=== PATIENT | female | born 1975 | race Caucasian/White ===

== ENCOUNTER 2016-07-01 19:39 | Inpatient (IN) | payer MEDICAID ==
[~2016-07-01] VITALS: Ht 162.6 cm; Wt 132.8 kg
--- NOTE | ~2016-07-01 | PUL ---
PATIENT'S NAME: PHILL NGUYEN [facility] AGE: 40 Y [address] ROOM: [address] [place], [place] [address] [facility] ADMIT DATE: 07/01/2016 Pulmonary DISCHARGE DATE: FAMILY PHYSICIAN: XAVIER MALIK MD ATTENDING PHYSICIAN: JAE TURNER V NAME OF PROCEDURE: Bedside Spirometry DATE OF PROCEDURE: July 04, 2016 TECH: KRYSTLE Shay REASON FOR EXAM: Shortness of breath RESULTS: FVC was 1.99 liters which is 54% of predicted and low, FEV1 was 1.74 liters which is 58% of predicted and low, and FEV1/FVC was 87.4% and normal. The flow volume curve did not reveal any significant airflow limitation. However, it was suggestive of restrictive lung disease. After bronchodilator administration FVC increased to 2.12 liters which is a 6% increase, and FEV1 increased to 1.87 liters which is an 8% increase. FEV1/FVC was 88.5%. Please note that there were no acceptable maneuvers. PHYSICIAN INTERPRETATION: The patient has no airflow limitation and no significant bronchodilator response. There is suggestion of restrictive lung disease but lung volumes are needed to confirm that. However overall the results have to be interpreted with care as the patient was not able to perform acceptable maneuvers. MD PEDRO LUIS MCBRIDE/gunnar /[id number] dtt: 07/08/16 1202 , NEHA BILLY dtd: 07/06/16 1538
--- NOTE | ~2016-07-01 | ER ---
PATIENT'S NAME: PHILL NGUYEN [facility] AGE: 40 Y [address] ROOM: [address] [address] LOCATION: [facility]PCU ADMIT DATE: 07/01/2016 ER/Outpatient Report DISCHARGE DATE: FAMILY PHYSICIAN: XAVIER MALIK MD ATTENDING PHYSICIAN: JAE TURNER V Time of Arrival: 1940 hours. Time of Exam: 1940 hours. CHIEF COMPLAINT: Difficulty breathing. HISTORY OF PRESENT ILLNESS: The patient states that she has not felt well for the past 24 hours. She has had generalized body aches, dizziness, and shortness of breath started today. She had fever and chills yesterday and today. States she did have her central line dressing change done yesterday at [facility]. She did take some Advil before coming into the ER. ALLERGIES: On the chart and reviewed by me. CURRENT MEDICATIONS: On the chart and reviewed by me. PAST MEDICAL HISTORY: Includes hypercoagulable state. She has had a PE, DVT, portal vein thrombosis. She has insulin-dependent diabetes, obesity, short-gut syndrome. PAST SURGERIES: Include cholecystectomy, splenectomy, , small-bowel resection, tubal ligation. SOCIAL HISTORY: She lives at home with her and child. Denies use of tobacco, drugs, or alcohol. REVIEW OF SYSTEMS: All negative other than those mentioned in the HPI. PHYSICAL EXAMINATION: VITAL SIGNS: She weighed 134.6 kg. Blood pressure is 128/59, pulse of 106, respirations 20, temperature of 99.2, and O2 saturation was 99% on 3 L per nasal cannula which is what she is on at home. GENERAL: She is awake, alert, and oriented x4. Her [place] Coma Scale is 15. PATIENT'S NAME: NANCY NGUYENLY Nadir [facility] AGE: 40 Y [address] ROOM: [address] [address] LOCATION: GPCU ADMIT DATE: 07/01/2016 ER/Outpatient Report DISCHARGE DATE: FAMILY PHYSICIAN: XAVIER MALIK MD ATTENDING PHYSICIAN: JAE TURNER V HEENT: Her TMs are dull. Nasal is boggy. Oropharynx is clear. NECK: Supple. No lymphadenopathy. LUNGS: Sounds are clear throughout. HEART: Regular rate and rhythm. ABDOMEN: Soft and nondistended. Bowel sounds are present. She does have a left chest port. EMERGENCY ROOM COURSE: Lab was drawn. White count is 16.2, hemoglobin is 11.7. Her ANC is 15.1. Chem panel: Sodium is 139, potassium is 3.4, chloride of 106. BUN is 21, creatinine of 1. GFR is greater than 60. Lactate was 2.2. Procalcitonin is 3.44. Nasal swab for influenza A and B is negative. A catheterized UA was obtained. It is positive for leukocytes, nitrites, and ketones. The micro on the urine shows moderate bacteria. Chest x-ray was completed, reviewed with Dr. Sanchez. No acute process noted. The patient was given Zofran 4 mg IV for the nausea, meclizine 25 mg p.o. for dizziness. She was having discomfort. She was given fentanyl 50 mcg IV. Normal saline was started, and vancomycin and Zosyn were ordered from the pharmacy. Dr. Leo was here in the ER. I did discuss the patient with him as the patient's primary doctor is Dr. Malik. The patient's previous admissions all been through the hospitalist. Dr. Leo asked that the hospitalist be contacted. Dr. Turner was contacted. He came down and evaluated the patient. IMPRESSION: Sepsis. PLAN: The patient will be admitted to PCU and followed by the hospitalist. She is aware of the plan of care. AURELIA HO APRN FOR DO NICOL CHOE/carlos manuel /[id number] d: 07/02/16 0539 t: 07/15/16 1332, OUTPATIENT REPORT
--- NOTE | ~2016-07-01 | CON ---
PATIENT'S NAME: PHILL NGUYEN [facility] AGE: 40 Y [address] ROOM: [place] [address] LOCATION: GPCU ADMIT DATE: 07/01/2016 Consultation DISCHARGE DATE: FAMILY PHYSICIAN: XAVIER MALIK MD ATTENDING PHYSICIAN: JAE TURNER V DATE OF CONSULTATION: 07/08/2016 REFERRING PHYSICIAN: ALISSA NGUYEN MD REFERRING PHYSICIAN: Jae Turner M.D. REASON FOR CONSULTATION: Achromobacter bacteremia. 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 The patient currently had a port. The patient presented to the emergency room on 01 of July with a generalized fatigue, muscle ache, pain, fever, and chills. She came to the hospital. Blood culture was done on 01 of July and started on broad-spectrum antibiotics. Initially noted to have leukocytosis, but no fever. The patient had CT of the chest and abdomen, does not show any significant source for infection. Later blood culture positive Achromobacter both set which was drawn peripherally. Antibiotic narrowed to IV Zosyn and there is a concern about port CLABSI, therefore surgeon was consulted and they actually recommend ID consult regarding the necessity of port removal or not. The patient's white blood cell improved and no fever, doing better, and currently using the port and IV antibiotic infused through the port. Repeat blood culture on 05 of July from the periphery still no growth. An ID consultation requested for question about port removal. The patient denied any fever or chills. No cough or cough of mucus. No chest pain. No abdominal pain. No diarrhea. ALLERGIES: DICYCLOMINE CAUSING RASH. PAST MEDICAL HISTORY: Severe hypocoagulable disorder with DVT and PE, history of Charcot syndrome with TPN dependence, diabetes, obesity, hypertension, and recurrent blood infection related to the line. SOCIAL HISTORY: Negative for smoking. PATIENT'S NAME: PHILL NGUYEN [facility] AGE: 40 Y [address] ROOM: [place] [address] LOCATION: GPCU ADMIT DATE: 07/01/2016 Consultation DISCHARGE DATE: FAMILY PHYSICIAN: XAVIER MALIK MD ATTENDING PHYSICIAN: JAE TURNER V FAMILY HISTORY: Positive for diabetes. CURRENT MEDICATIONS: Has been on IV Zosyn since admission. REVIEW OF SYSTEMS: GENERAL: Fever negative. Chills negative. HEENT: Headache negative. PULMONARY: Cough negative. Sputum negative. CARDIOVASCULAR: Chest pain negative. GI: Nausea and vomiting negative. Diarrhea negative. MUSCULOSKELETAL: Joint pain negative. PHYSICAL EXAMINATION: VITAL SIGNS: Blood pressure 100/58, pulse rate 63, respirations 14, and temperature 98.3. No fever since admission. GENERAL: In NAD. HEENT: Conjunctivae pink. Sclerae not icteric. No stomatitis. NECK: Supple. LUNGS: Sound clear to auscultation bilaterally. HEART: Regular rhythm and rate. ABDOMEN: Bowel sounds positive. No tenderness or rebound tenderness. BACK AND EXTREMITIES: No joint swelling noted. SKIN: Left upper chest had a port. No redness. Port access. LABORATORY DATA: White blood cell count 13.0, hemoglobin 10.2, and platelets 412. Chemistry: BUN 12 and creatinine 0.9. UA done on 04 of July shows negative pyuria. Blood culture on 01 of July, 2 sets both from the periphery, grew Achromobacter xylosoxidans; sensitive to Bactrim, ceftazidime, Zosyn, and meropenem. On 04 of July, urine cultures shows Deanna. On 05 of July, one set of blood culture from the periphery, no growth. ASSESSMENT AND PLAN: Achromobacter bacteremia and suspects CLABSI, all the blood culture was drawn peripherally. CT of the chest and CT of the abdomen are unremarkable. Blood culture cleared on 05 of July, but this one also drove from the periphery. RECOMMENDATIONS: We will check one set of blood culture from the port today. If that blood culture become positive, then ID recommend to remove the port. If the blood culture from the port is negative in 48 hours, then I will recommend to try to salvage the port. In this case, we will recommend to continue IV Zosyn through PATIENT'S NAME: PHILL NGUYEN [facility] AGE: 40 Y [address] ROOM: [id number] [place], [place] [address] [facility] ADMIT DATE: 07/01/2016 Consultation DISCHARGE DATE: FAMILY PHYSICIAN: XAVIER MALIK MD ATTENDING PHYSICIAN: JAE TURNER V July 18, 2016, which is 14 days from the previous negative blood culture, which was done on 05 of July. Then, stop IV Zosyn and wait for one week and recommend to check blood culture x2, one from the port and one from the periphery around July 26, 2016. Can use IV meropenem 2 grams q.12 hours or IV cefepime 2 grams q.12 hours instead of IV Zosyn for outpatient IV antibiotic if less frequent antibiotic desired. The patient will need to follow up to ID Clinic around July 26, 2016. If any question, please call ID Service . MD BRUCE SEYMOUR/carlos manuel /[id number] d: 07/08/162030 t: 07/24/161811, CONSULTATION REPORT
--- NOTE | ~2016-07-01 | CON ---
PATIENT'S NAME: PHILL NGUYEN [facility] AGE: 40 Y [address] ROOM: [address] [place], [place] [address] LOCATION: GPCU ADMIT DATE: 07/01/2016 Consultation DISCHARGE DATE: FAMILY PHYSICIAN: XAVIER MALIK MD ATTENDING PHYSICIAN: JAE TURNER V REFERRING PHYSICIAN: ALISSA NGUYEN MD REASON FOR CONSULTATION: Port removal. HISTORY OF PRESENT ILLNESS: Phill Argueta is a 40-year-old female who has a complicated past medical history. 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 The patient was admitted to [facility] on July 01 with fever, generalized fatigue, and chest pain. The patient's lab work on admission showed a white blood cell count of 7.9, which increased up to 27.5 on July 02 and has actually come down to 11.4 today. The patient had blood cultures drawn peripherally, which showed gram-negative rods and grew Achromobacter xylosoxidans. The patient had repeat blood culture drawn yesterday, which shows no growth so far. Dr. Orlando evaluated the patient yesterday for the hospitalist and consulted General Surgery today for consideration of removal of the port with a new port placement. The patient states that she is feeling better today. She states that when she was admitted she did have some abdominal pain, but that has improved. The patient states that she is completely dependent on the TPN, as the only thing that she tries to eat at home is some water and popsicles. Anything more than that will cause significant abdominal pain. The patient was maintained on Lovenox for her hypercoagulable state. PAST MEDICAL HISTORY: ALLERGIES: DEXTROMETHORPHAN AND BENTYL. MEDICATIONS: Include, 1. Lipitor 10 mg p.o. q.h.s. 2. Wellbutrin XL 150 mg p.o. daily. 3. Lovenox 180 mg subcu b.i.d. 4. Prozac 40 mg p.o. daily. 5. Lasix 40 mg p.o. daily. 6. Glucophage 500 mg p.o. b.i.d. 7. Zofran 4 mg p.o. every 4 hours. 8. Protonix 40 mg p.o. daily. 9. TPN. PATIENT'S NAME: PHILL NGUYEN [facility] AGE: 40 Y [address] ROOM: [address] [place], [place] [address] LOCATION: GPCU ADMIT DATE: 07/01/2016 Consultation DISCHARGE DATE: FAMILY PHYSICIAN: XAVIER MALIK MD ATTENDING PHYSICIAN: JAE TURNER V 10. Aldactone 50 mg p.o. daily. 11. Drisdol 29554 units p.o. every 7 days. ILLNESSES: Include severe hypercoagulable disorder with history of DVTs and PEs; history of short gut syndrome, on TPN; noninsulin-dependent diabetes; chronic hypoxic respiratory failure; morbid obesity; hypertension; and history of acute kidney injury. PHYSICAL EXAMINATION: VITAL SIGNS: Temperature is 98.4. The patient has been afebrile throughout the hospitalization. Blood pressure is 107/56, pulse 71, and respirations 18. GENERAL: Obese, 40-year-old female who is alert, oriented, pleasant, cooperative. HEENT: Eyes, ears, nose, and throat are grossly normal. LUNGS: Diminished bilaterally. No wheezes, rhonchi, or rales noted. HEART: Regular rate and rhythm. ABDOMEN: Has active bowel sounds. Abdomen is soft with mild diffuse tenderness. She has a port accessed in the left upper chest area. There is no erythema or significant tenderness around this area. No drainage. LAB WORK: Again, white blood cell count 11.4, hemoglobin 9.9, and platelets 381. CMP shows sodium 139, potassium 3.7, glucose 150, BUN 10, and creatinine 0.9. Total bilirubin 0.4, alkaline phosphatase 217, AST 21, and ALT 49. Urine culture shows yeast. The repeat blood culture shows no growth. ASSESSMENT: A 40-year-old female with, 1. Bacteremia with Achromobacter xylosoxidans with repeat blood culture is negative. 2. Hypercoagulable disorder, on Lovenox. 3. Short gut syndrome. TPN dependent. PLAN: Dr. Ocampo discussed this patient further with Dr. Piña who is taking over care of the patient today. It was decided that it would be best to wait and obtain an ID consult when their 1st available, which is on July 08. We will await to see what Infectious Disease states in regard to the port and whether it needs to be removed. If it is removed, then we would not be able to replace it for a few days to allow the infection to clear completely. Also Dr. Ocampo would recommend a [place] overall port for the TPN. Dr. Ocampo discussed this further with the patient. The patient was comfortable waiting until Infectious Disease makes the recommendation that she is not overly anxious that has to undergo removal and replacement. The patient's questions PATIENT'S NAME: PHILL NGUYEN [facility] AGE: 40 Y [address] ROOM: [place] [address] [facility] ADMIT DATE: 07/01/2016 Consultation DISCHARGE DATE: FAMILY PHYSICIAN: XAVIER MALIK MD ATTENDING PHYSICIAN: JAE TURNER V concerns were addressed. Dr. Ocampo evaluated the patient, was involved in the assessment and plan, and was available for supervision. JANY PITTMAN PA-C FOR MD JONNY WEBBERK/carlos manuel /[id number] d: 07/06/16 2100 t: 07/15/16 1742, CONSULTATION REPORT
--- NOTE | ~2016-07-01 | HP ---
PATIENT'S NAME: PHILL NGUYEN [facility] AGE: 40 Y [address] ROOM: [place] [address] LOCATION: GPCU ADMIT DATE: 07/01/2016 History & Physical DISCHARGE DATE: FAMILY PHYSICIAN: XAVIER MALIK MD ATTENDING PHYSICIAN: JAE TURNER V DATE OF SERVICE: CHIEF COMPLAINT: Fever, generalized fatigue, and chest pain. 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 The patient presented to the ER with approximately 2 days of complaints of generalized fatigue, muscle and ache pains, fevers and chills, nausea, vomiting, and chest pain, which is comparable to the episode, where she was diagnosed with PEs. The patient is chronically on anticoagulation with Lovenox 180 b.i.d. and has been known to develop PEs when the dose has dropped below that. She also endorses abdominal distention and tenderness. In the ER, workup revealed an elevated white count and slightly elevated lactate. She was borderline febrile at 99.3. REVIEW OF SYSTEMS: All systems have been reviewed and are negative except pertinent positives as mentioned above. PAST MEDICAL HISTORY: Significant for: 1. Severe hypercoagulable disorder with history of DVTs and PEs, currently on Lovenox. 2. History of short-gut syndrome with TPN dependence. 3. Jjt-zosqaqs-ikloeezip diabetes. 4. Chronic hypoxic respiratory failure requiring oxygen supplementation. 5. Morbid obesity. 6. Hypertension. 7. Recurrent infections related to a history of a tunnel catheter, which at this point, has been removed. PATIENT'S NAME: PHILL NGUYEN [facility] AGE: 40 Y [address] ROOM: [place] [address] LOCATION: GPCU ADMIT DATE: 07/01/2016 History & Physical DISCHARGE DATE: FAMILY PHYSICIAN: XAVIER MALIK MD ATTENDING PHYSICIAN: JAE TURNER V 8. History of acute kidney injury. SOCIAL HISTORY: Negative for any ongoing toxic habits. FAMILY HISTORY: Reviewed in entirety and is noncontributory due to known underlying etiology for her presentation. CURRENT MEDICATIONS: Include Lovenox and metformin and a full list is currently being compiled. PHYSICAL EXAMINATION: VITAL SIGNS: Blood pressure 100/50, heart rate is in the low 100s and regular, temperature 99.7, respirations 16, and satting 96% to 98% on 2 L nasal cannula. GENERAL: Appears as a morbidly obese, middle-aged female, in no severe distress, slightly diaphoretic skin. EYES: Exam shows pupils are equal and reactive to light. LYMPHATIC: Exam shows no cervical lymphadenopathy. ENDOCRINE: Exam shows no thyromegaly. LUNGS: Clear to auscultation in all harman. HEART: Rate is slightly tachycardic and regular with no appreciable murmurs, gallops, or rubs. ABDOMEN: Soft, slightly tender, with diminished bowel sounds in all harman. No rebound or guarding. VASCULAR: Exam reveals 2+ pedal pulses. MUSCULOSKELETAL: Exam is unremarkable. SKIN: Warm and dry. PSYCHIATRIC: Exam reveals labile mood, but preserved cognition and affect. LABORATORY DATA: Studies performed in the ER are significant for chest x-ray, in which I only see cardiomegaly. Lab results are significant for a lactate of 2.2. Sodium 139, potassium 3.4, glucose 166, unremarkable transaminases. White count is 16.2, hemoglobin 11.7, and platelets of 441. Procalcitonin 3.44. Urinalysis shows 100 leukocytes, positive nitrites. ASSESSMENT AND PLAN: This is a 40-year-old female who will be admitted with: 1. Systemic inflammatory response syndrome. This patient is quite predisposed to infections and we will continue vancomycin and Zosyn, which were started in the ER. We will follow up with her blood cultures. We will hydrate her. We will also perform a CT of chest, abdomen, and pelvis to rule out possible focus. PATIENT'S NAME: PHILL NGUYEN [facility] AGE: 40 Y [address] ROOM: [address] [place], [place] [address] LOCATION: GPCU ADMIT DATE: 07/01/2016 History & Physical DISCHARGE DATE: FAMILY PHYSICIAN: XAVIER MALIK MD ATTENDING PHYSICIAN: JAE TURNER V 2. Chronic hypoxic respiratory failure. We will continue the patient on oxygen supplementation. 3. Hypercoagulable disorder. The patient is heavily endorsing potential for repeat pulmonary emboli, as I know she has had a prior failure of lower Lovenox dose in the past. We will do a CT chest with contrast to rule out any acute pulmonary embolisms. 4. Abdominal symptoms. We will do a CAT scan of abdomen and pelvis with p.o. and intravenous contrast to rule out possibility of additional ischemic focus in her small intestine versus possible focus of infection. We will also add amylase and lipase to her labs drawn in the ER. 5. Iky-ppvzmia-mgllebhli diabetes. We will have to treat with her insulin as we will have to hold metformin after giving her contrast. 6. Chronic protein-calorie malnutrition, rnqhymav-ip-cubwfe, we will continue the patient on TPN once we make sure she does not have a blood- borne infection. 7. Additional management will depend on clinical course. Time dedicated to this patient's encounter is 35 minutes. MD MAXX MCFADDEN/carlos manuel /[id number] D: [id number] T: [id number] HISTORY & PHYSICAL
--- NOTE | ~2016-07-01 | CON ---
PATIENT'S NAME: PHILL NGUYEN [facility] AGE: 40 Y [address] ROOM: [address]6327 [place], [place] [address] LOCATION: GPCU ADMIT DATE: 07/01/2016 Consultation DISCHARGE DATE: FAMILY PHYSICIAN: XAVIER MALIK MD ATTENDING PHYSICIAN: JAE TURNER V DATE OF CONSULTATION: 07/02/2016 REFERRING PHYSICIAN: ALISSA NGUYEN MD REASON FOR CONSULTATION: Short-bowel syndrome. HISTORY OF PRESENT ILLNESS: This is a pleasant, 40-year-old female who is familiar to our service from previous hospital admissions. 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 The patient has been thoroughly worked up with no identification of the hypercoagulable disorder. The patient, for the past year, has been dependent on total parenteral nutrition. Also with frequent, recurring blood-borne infections. The patient presented to the emergency room with a 2-day complaint of generalized fatigue, muscle and ache pain, fever, and chills. The patient also at that time complained of some abdominal discomfort, nausea, and vomiting. The patient is chronically on anticoagulation, being Lovenox twice daily, as she has a history of multiple DVTs and PEs. She has a port placed to the left chest and again has been receiving TPN for the past year. She does state at home she is able to tolerate popsicles and water, though any type of food she ingests does increase her abdominal pain. In the emergency room, her white blood cell count was elevated with a slightly elevated lactate. She also, at that time, had a temperature of 99.3. The patient denies any current chest pain, chest pressure, shortness of breath, fever, chills, or night sweats. She does state that her weight has been stable with no unintentional weight loss. PAST MEDICAL HISTORY: Severe hypercoagulable disorder with history of DVTs and PEs, currently on long-term Lovenox; short-gut syndrome, with TPN dependence; non-insulin- dependent diabetes; chronic hypoxic respiratory failure requiring oxygen supplementation; morbid obesity; hypertension; recurring infections; and history of acute kidney injury. PAST SURGICAL HISTORY: x4, tubal ligation, laparoscopic cholecystectomy, splenectomy, tonsillectomy, cystoscopy, history of upper endoscopy, and colonoscopy. SOCIAL HISTORY: PATIENT'S NAME: PHILL NGUYEN [facility] AGE: 40 Y [address] ROOM: [address] [place], [place] [address] LOCATION: GPCU ADMIT DATE: 07/01/2016 Consultation DISCHARGE DATE: FAMILY PHYSICIAN: XAVIER MALIK MD ATTENDING PHYSICIAN: JAE TURNER V The patient denies any alcohol, tobacco, or illicit drug use. FAMILY HISTORY: The patient's mother has diabetes mellitus, CHF, and hyperlipidemia. The patient's father had multiple strokes and has since , he also had diabetes. She does have siblings, though she denies they have any medical issues. ALLERGIES: DEXTROMETHORPHAN, DICYCLOMINE. CURRENT MEDICATIONS: Please refer to the medication administration record. REVIEW OF SYSTEMS: A 10-point review of systems was completed, all were negative except for those identified in the History of Present Illness. PHYSICAL EXAMINATION: GENERAL: A very pleasant, 40-year-old female, who is lying in bed, who appears to be in no acute distress. VITAL SIGNS: Temperature 98.0, pulse of 75, respirations of 16, blood pressure 108/66, and oxygen saturation is 99% on room air. SKIN: [place], warm, and dry. No jaundice. HEENT: Head is normocephalic and atraumatic. Pupils are equal, round, and reactive to light. Sclerae are clear, nonicteric. Oral mucosa is pink and moist. No thyromegaly. NECK: Soft and supple. CARDIOVASCULAR: Regular. Normal S1 and S2. RESPIRATORY: Respirations even and unlabored. Lungs clear to auscultation. ABDOMEN: Soft, round, and obese. Tender throughout. No rebound, rigidity, or guarding noted. Bowel sounds positive x4 quadrants. MUSCULOSKELETAL: No muscle weakness or atrophy. EXTREMITIES: No clubbing, cyanosis, or edema. NEUROLOGICAL: Grossly nonfocal. LABORATORY AND DIAGNOSTIC DATA: On admission to the emergency room, she was found to have a white blood cell count of 27.5, hemoglobin of 7.6, hematocrit of 33.1, and platelets of 380. Chemistry panel included glucose of 142, BUN of 17, creatinine 0.8, sodium 138, potassium of 4.8, chloride of 109, and CO2 of 22. Chemistry panel includes albumin of 2.6, AST of 122, ALT of 77, alkaline phosphatase of 131, total bilirubin is 0.7, phosphorus of 3.2, and magnesium of 2.0. Prothrombin time 10.1, INR is 1.0, and PTT of 22. Amylase was 41 and lipase of 241. She also underwent a CT scan on evaluation that showed no acute findings. Chronic PATIENT'S NAME: PHILL NGUYEN [facility] AGE: 40 Y [address] ROOM: [id number] [place] [id number] LOCATION: GPCU ADMIT DATE: 07/01/2016 Consultation DISCHARGE DATE: FAMILY PHYSICIAN: XAVIER MALIK MD ATTENDING PHYSICIAN: JAE TURNER V splenectomy, hepatomegaly, a cavernous transformation of the portal vein and formation of varices around the distal esophagus and in the upper abdomen, hepatomegaly with septal nodular liver surface contour suggests chronic parenchymal liver disease. Ascites had resolved compared to previous study completed in February 2016. ASSESSMENT AND PLAN: Again, this is a very pleasant, 40-year-old female who has significant past medical history for hypercoagulable state of unknown etiology resulting in short-bowel syndrome, The patient has been on chronic total parenteral nutrition for the past year. At this time, we were asked to see in consultation for the short-bowel syndrome, though we agree with recommendations of continuing the patient's total parenteral nutrition. Unfortunately, at this point, in the patient's health status, continual total parenteral nutrition will be warranted. This was discussed in depth with the patient's primary provider as they are in agreement. Thank you for this consult and allowing us to participate in the care of this patient. We will continue to monitor, evaluate, and treat as appropriate. JEMIMA WALDRON APRN FOR MD DANIELITO IVAN/carlos manuel /[id number] d: 07/03/16 1122 t: 07/03/16 1203, CONSULTATION REPORT
--- NOTE | ~2016-07-01 | ECHO ---
Transthoracic Echocardiography Report (TTE) Demographics Patient Name PHILL NGUYEN Date of Study 07/06/2016 Patient Number [id number] Visit Number [id number] Date of 1975 Room Number G6327 Gender Female Number Age 40 year(s) Referring Cristi Morris MD Engineer Automated Equipment Elizabeth Murphy RVT Physician Steffany Spears MD Physician Interpreting Columba Staples Gasser Machine Operator Physician Supervising Ordering Ayana Morris MD, MD/MLP Physician Nurse Stress Principal Trainer Conclusions Contractility Score Summary Normal Left Ventricular contractility was noted. Summary Technically difficult exam. The estimated left ventricular ejection fraction is 55%.The left ventricle is normal in size with normal wall thickness.WMAs are difficult to comment on. Trivial MR. Mild tricuspid regurgitation with normal pulmonary pressures. Procedure Type of Study TTE procedure:2D Echocardiogram, M-Mode, Doppler , Color Doppler. Procedure Date Date: 07/06/2016 Start: 02:48 PM Study Location: Inpatient Portable Technical Quality: Fair due to body habitus. Indications:Fever of unknown origin and Shortness of breath. Appropriate Use Criteria: 9 Patient Status: Routine HR: 64 bpm BP: 106/55 mmHg M-Mode/2D Measurements LV Diastolic Dimension: 5.14 cm LV Systolic Dimension: 3.47 cm LV Septum Diastolic: 0.94 cm LV PW Diastolic: 0.87 cm AO Root Dimension: 2.6 cm Cardiac Output: 3.52 l/min LA Dimension: 4.1 cm EF Estimated: 55 % LVOT: 2 cm LVOT VTI: 17.5 cm RV Base: 3.55 cm LV Stroke volume: 54.95 ml RV Length: 6.34 cm TAPSE: 2.97 cm TDI-S': 17.5 cm/s Doppler Measurements AV Peak Velocity: 1.11 m/s MV Peak E-Wave: 0.93 m/s AV Peak Gradient: 4.93 mmHg MV Peak A-Wave: 0.63 m/s AV Mean Gradient: 3 mmHg MV E/A Ratio: 1.47 LVOT Peak Velocity: 0.76 m/s MV P1/2t: 48 msec MV Deceleration Time: 155 msec TR Gradient:26.01 mmHg PV Peak Velocity: 1.14 m/s Estimated RAP:3 mmHg PV Peak Gradient: 5.2 mmHg Estimated RVSP: 29 mmHg Estimated PASP: 29.01 mmHg E' Septal Velocity: 0.09 m/s A' Septal Velocity: 0.11 m/s E' Lateral Velocity: 0.1 m/s A' Lateral Velocity: 0.11 m/s Findings Left Ventricle The left ventricle is normal in size with normal wall thickness and EF.WMAs cannot be confidently commented on. Right Ventricle Normal right ventricle structure and function. Left Atrium Normal left atrial size. Right Atrium Normal right atrial size. Prominent Chiari network seen in the right atrium. Increased RA pressures. Mitral Valve Normal mitral valve structure and function. Trivial mitral regurgitation by color Doppler. Aortic Valve Normal aortic valve structure and function. Tricuspid Valve Normal tricuspid valve structure and function. Mild tricuspid regurgitation by color Doppler. Pulmonic Valve The pulmonic valve is not well visualized. Pericardial Effusion No evidence of pericardial effusion. Miscellaneous Visualized portions of the aortic root appear normal in size. Pleural Effusion No evidence of pleural effusion. Contractility Score LV regional wall motion:(0-Non visualized 1-Normal 2-Hypokinesis 3-Akinesis 4-Dyskinesis 5-Aneurysm) Signature dtt: Bel Waterman dtd: 07/06/16 1448 Physician Self Edit
--- NOTE | ~2016-07-01 | DS ---
PATIENT'S NAME: PHILL NGUYEN [facility] AGE: 40 Y [address] ROOM: [address] [place], [place] [address] LOCATION: GPCU ADMIT DATE: 07/01/2016 Discharge Summary DISCHARGE DATE: 07/10/2016 FAMILY PHYSICIAN: Nhan Colin MD ATTENDING PHYSICIAN: Jamey Jeter V FINAL DIAGNOSES: 1. 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 2. Acute on chronic hypoxic respiratory failure. 3. Hypercoagulable state. 4. Chronic ischemic colitis/short-bowel syndrome. 5. Chronic TPN usage. 6. Chronic pain syndrome. 7. Anemia of chronic disease. Please see the history and physical dictated by Dr. Jeter for details of admission. LABORATORY DATA: On admission, lactate was 2.2. Sodium on admission was 139, discharge 137; potassium on admission was 3.4, most prior to discharge is 4.1; CO2 on admission was 22, discharge 27; BUN on admission was 17, discharge 13; creatinine on admission was 0.9, discharge 0.9. Liver enzymes were normal. Magnesium on admission was 2, discharge 2. White blood cell count on admission was 16.2, quickly mj to 27.5 with 17% bands, most prior to discharge it was 12.1; hemoglobin on admission was 10.9, at discharge 10.9; platelet count on admission was 45, discharge 427. Procalcitonin on admission was 3.44. Influenza A and influenza B studies were negative. MICROBIOLOGY DATA: Blood cultures were positive for Achromobacter xylosoxidans. CARDIOVASCULAR STUDIES: An echocardiogram done on admission did not show any evidence of endocarditis. HOSPITAL COURSE: The patient presented with fevers, chills, and a sepsis picture. She was found to have an elevated white blood cell count. In the emergency room, she did undergo washing for influenza which was negative. It was felt that she needed hospitalization. There was a concern that she may have an infected port. She was placed on IV Zosyn and vancomycin. A CT scan of the chest, abdomen, and pelvis was done to rule out any other source of infection. She was continued on the Lovenox for her hypercoagulable state and was continued on TPN. Her blood cultures did return positive for gram- negative amos. GI was asked to see her with her short bowel syndrome from chronic ischemic colitis. She did continue to complain of pain and did PATIENT'S NAME: PHILL NGUYEN [facility] AGE: 40 Y [address] ROOM: [address] [place], [place] [address] LOCATION: GPCU ADMIT DATE: 07/01/2016 Discharge Summary DISCHARGE DATE: 07/10/2016 FAMILY PHYSICIAN: Nhan Colin MD ATTENDING PHYSICIAN: Jamey Jeter V receive IV morphine for the pain. Her fluid status was monitored closely. ID was asked to see her when they arrived. Her blood culture did grow Achromobacter xylosoxidans. There was a concern that this was a port infection, Dr. Ocampo did see her and wanted ID to comment as to whether we needed to pull the port. An echocardiogram was done to rule out endocarditis. ID did see her and felt that because blood cultures that had been drawn on July 05 were negative, that we would be able to salvage her port. The plan was to keep her on IV antibiotics through July 18. We did change her to meropenem 2 g IV q.12 hours to accommodate this. Then on July 25, she would have repeat cultures, one from the port and one peripherally. Once the repeat cultures drawn on the were negative for 48 hours, it was felt that she would be stable for discharge with IV antibiotics arrangements were made for her to receive home health IV antibiotics. DISCHARGE INSTRUCTIONS: To have her home TPN. Follow up with Dr. Colin on July 24 because the falls on Wednesday. She needs blood culture from her port, one peripherally. I spoke to Dr. Colin personally. MEDICATIONS: 1. Metformin 500 mg twice daily. 2. Protonix 40 mg daily. 3. Vitamin D 42485 units weekly. 4. Zofran 4 mg every 4 hours. 5. Oxygen at 2 L per nasal cannula. 6. Lipitor 10 mg daily. 7. Lovenox 180 mg subcu twice daily. 8. Prozac 40 mg daily. 9. Lasix 40 mg daily. 10. Spironolactone 50 mg daily. 11. Wellbutrin 150 mg daily. 12. Meropenem 2 g IV q.12 hours through July 18. 13. Percocet 5/325 1-2 every 6 hours as needed for pain. OVERALL PROGNOSIS: At discharge is fair. FAY DENTON MD LAW/modl /[id number] d: 07/11/16 0044 t: 07/22/16 1642, DISCHARGE SUMMARY
[~2016-07-01 19:39] MED LIST: ALDACTONE50 MG PO; DIFLUCAN200 MG PO; DIGESTIVE PROB250 MG PO; DRISDOL 5050000 UNIT PO; GLUCOPHAGE500 MG PO; HUMULIN R100 UNIT/1 SUB-Q; HYDROCODON-ACE1 EAC4 PO; IMODIUM LIQ1 MG/5 ML PO; INTRALIPID; INTRALIPID IV; INVANZ1 G1 IV; LASIX40 M1 PO; LIPITOR10 MG PO; LIPITOR20 M1 PO; LOVENOX 10100 MG/1 M PO; LOVENOX 8080 MG/0.8 PO; LOVENOX SUB-Q; LOVENOX120 MG/0.8 SUB-Q; NORCO 5-325 MG1 TAB PO; NOVOLIN-R100 UNIT/M SUB-Q; NYSTATIN1 EAC1 TOP; OXYGEN INH; OXYGEN M-15 INH; PERCOCET 5-3251 EACH PO; PROTONIX40 MG PO; PROZAC20 MG PO; PROZAC40 MG PO; TPN ELECTROLYT100 ML; VANCO 1.751.75 GM/25 IV; ZOFRAN4 MG PO; ZOVIRAX200 MG PO
[2016-07-01 20:24] LABS: BASOPHIL # 0.1 K/uL (0.0-0.2); BASOPHIL % 0.3 %; EOSINOPHIL # 0.2 K/uL (0.0-0.5); EOSINOPHIL % 1.2 %; HEMATOCRIT 35.3 % (33.0-46.0); HEMOGLOBIN 11.7 g/dL (11.0-15.0); IMMATURE GRANULOCYTE # 0.1 K/uL (0.0-0.3); IMMATURE GRANULOCYTE % 0.4 %; LYMPHOCYTE # 0.5 K/uL (0.8-4.0); LYMPHOCYTE % 3.3 %; MCH 31.7 pg (27.0-34.0); MCHC 33.1 gm/dL (32.0-36.5); MCV 95.7 fl (83.0-98.0); MONOCYTE # 0.2 K/uL (0.0-1.0); MONOCYTE % 1.3 %; MPV 9.4 fl (9.4-12.4); NEUTROPHIL # (ANC) 15.1 K/uL (1.8-7.8); NEUTROPHIL % 93.5 %; NRBC % 0 /100WBC (0-0.00); PLATELET COUNT 441 K/uL (150-450); RBC 3.69 M/uL (3.50-5.50); RDW-CV 15.7 % (11.9-14.6)
[2016-07-01 20:25] LABS: WBC 16.2 K/uL (4.0-11.0)
[2016-07-01 20:30] LABS: PROTIME 10.1 SECONDS (9.6-11.1); PTT 22 SECONDS (25-32)
[2016-07-01 20:40] LABS: ALBUMIN 3.4 gm/dL (3.5-5.0); ALK PHOS 129 IU/L (33-138); ALT 37 IU/L (12-78); ANION GAP 14.4 (10.0-19.0); AST 30 IU/L (10-40); BLOOD UREA NITROGEN 21 mg/dL (6-24); CALCIUM 8.8 mg/dL (8.5-10.5); CHLORIDE 106 mMol/L (96-110); CO2 22 mMol/L (22-32); ESTIMATED GFR (MDRD EQUATION) > 60; POTASSIUM 3.4 mMol/L (3.7-5.1); SODIUM 139 mMol/L (135-145); TOTAL PROTEIN 7.6 g/dL (6.0-8.4)
[2016-07-01 20:41] LABS: TOTAL BILIRUBIN 0.3 mg/dL (0.0-1.5)
[2016-07-01 21:00] LABS: BILIRUBIN URINE NEGATIVE (NEGATIVE); BLOOD URINE 10 /UL (NEGATIVE); GLUCOSE URINE NEGATIVE (NEGATIVE); KETONE URINE 5 mg/dL (NEGATIVE); LEUKOCYTES URINE 100 /UL (NEGATIVE); NITRITE URINE POSITIVE (NEGATIVE); PROTEIN URINE 30 mg/dL (NEGATIVE); SPEC GRAVITY URINE 1.015 (1.003-1.035); UROBILINOGEN URINE 1 mg/dL (NORMAL)
[2016-07-01 21:07] LABS: COLOR URINE YELLOW (YELLOW); TURBIDITY URINE CLEAR (CLEAR)
[2016-07-01 21:08] LABS: RBC URINE RARE #/HPF (NEGATIVE)
[2016-07-01 21:09] LABS: BACTERIA URINE MODERATE (NEGATIVE); MUCUS URINE 1+ (NEGATIVE)
[2016-07-01] MEDS ORDERED: LASIX40 MG PO (23:58)
[2016-07-01] MEDS ORDERED: ALDACTONE50 MG PO (23:58)
[2016-07-01] MEDS ORDERED: WELLBUTRIN XL150 M1 PO (23:58)
[2016-07-02 02:33] LABS: CPK 102 IU/L (21-215)
--- NOTE | 2016-07-02 05:20 | NUR ---
Patient admitted to pcu at 2315 from ED via cart. She was accompanied by her son and . She had been having fever, chills and body aches at home for 2 days prior to admission. tested negative for influenza did ct of chest and abdomen and was negative for pe's. started on several antibiotis. Has a left chest port. Up on the room with 1 assist as she is feeling dizzy. VSS on 3 L NC per her home dose. Will continue to monitor
[2016-07-02 06:10] LABS: HEMATOCRIT 33.1 % (33.0-46.0); HEMOGLOBIN 10.6 g/dL (11.0-15.0); MCH 31.3 pg (27.0-34.0); MCV 97.6 fl (83.0-98.0); MPV 9.2 fl (9.4-12.4); PLATELET COUNT 380 K/uL (150-450); RBC 3.39 M/uL (3.50-5.50); RDW-CV 15.9 % (11.9-14.6)
[2016-07-02 06:13] LABS: WBC 27.5 K/uL (4.0-11.0)
[2016-07-02 06:29] LABS: ALBUMIN 2.6 gm/dL (3.5-5.0); ALK PHOS 131 IU/L (33-138); ALT 77 IU/L (12-78); AST 122 IU/L (10-40); BLOOD UREA NITROGEN 17 mg/dL (6-24); CALCIUM 7.8 mg/dL (8.5-10.5); CHLORIDE 109 mMol/L (96-110); CO2 22 mMol/L (22-32); CPK 46 IU/L (21-215); CREATININE 0.8 mg/dL (0.5-1.1); ESTIMATED GFR (MDRD EQUATION) > 60; PHOSPHORUS 3.2 mg/dL (2.5-4.9); SODIUM 138 mMol/L (135-145); TOTAL PROTEIN 6.5 g/dL (6.0-8.4)
[2016-07-02 06:31] LABS: ANION GAP 11.8 (10.0-19.0); POTASSIUM 4.8 mMol/L (3.7-5.1); TOTAL BILIRUBIN 0.7 mg/dL (0.0-1.5)
[2016-07-02 06:59] LABS: ABSOLUTE NEUTROPHIL CT (ANC) 24.2 K/uL (1.8-7.8); BANDED NEUTROPHIL # 4.7 K/uL (0.0-0.1); BANDED NEUTROPHILS % 17 %; LYMPHOCYTE # 1.9 K/uL (0.8-4.0); LYMPHOCYTE % 7 %; MONOCYTE # 1.4 K/uL (0.0-1.0); SEGMENTED NEUTROPHIL # 19.5 K/uL (1.8-7.8); SEGMENTED NEUTROPHIL % 71 %
--- NOTE | 2016-07-02 14:43 | NUR ---
Significant Event: AOx3. VSS. Afebrile. L) chest port with NS running at 100ml/hr. Has 3 different antibiotics. Up with 1 assist to the bathroom. Patient complains of dizziness when up and walking. On 2L/O2 humidified nasal cannula. Complains of abdomen pain. Morphine 6mg IV given Q4hrs PRN for pain. Usually has TPN running. Has consult in for nutrition. ALso has GI consult. Follow up:
[2016-07-03 03:26] LABS: BASOPHIL # 0.1 K/uL (0.0-0.2); BASOPHIL % 0.4 %; EOSINOPHIL # 0.6 K/uL (0.0-0.5); EOSINOPHIL % 3.1 %; HEMATOCRIT 29.9 % (33.0-46.0); HEMOGLOBIN 9.6 g/dL (11.0-15.0); IMMATURE GRANULOCYTE # 0.1 K/uL (0.0-0.3); IMMATURE GRANULOCYTE % 0.4 %; LYMPHOCYTE # 3.4 K/uL (0.8-4.0); LYMPHOCYTE % 17.7 %; MCH 31.3 pg (27.0-34.0); MCHC 32.1 gm/dL (32.0-36.5); MCV 97.4 fl (83.0-98.0); MONOCYTE # 1.3 K/uL (0.0-1.0); MONOCYTE % 6.9 %; MPV 9.6 fl (9.4-12.4); NEUTROPHIL # (ANC) 13.6 K/uL (1.8-7.8); NEUTROPHIL % 71.5 %; NRBC % 0 /100WBC (0-0.00); PLATELET COUNT 378 K/uL (150-450); RBC 3.07 M/uL (3.50-5.50); RDW-CV 16.3 % (11.9-14.6)
[2016-07-03 03:44] LABS: WBC 19.1 K/uL (4.0-11.0)
--- NOTE | 2016-07-03 05:28 | NUR ---
Significant Event: PATIENT A/0 X 3, COOPERATIVE WITH CARES. AMBULATES STAND BY ASSIST. ALL VSS, AFEBRILE, REMAINS ON 2L 02 PER HOME DOSE. BLOOD CULTURES CAME BACK + FOR GRAM - RODS. VANCO AND FLAGYL D/C'D, CONTINUES ZOSYN, ALSO NS AT 100 ML/HR TO LEFT CHEST PORT. BEGAN ITCHING, BENADRYL 25 MG PO GIVEN. SHE CONTINUES TO REQUEST 6 MG MORPHINE ALONG WITH 4 MG ZOFRAN Q4 HOURS. FOR BACK/NECK/ABDOMINAL PAIN. RELIEF HAS BEEN NOTED EACH TIME. STILL REMAINS NPO EXCEPT FOR ICE CHIPS. Follow up: POSSIBLE START OF TPN TODAY.
[2016-07-03 17:20] LABS: ANION GAP 14.6 (10.0-19.0); CHLORIDE 107 mMol/L (96-110); CO2 23 mMol/L (22-32); CREATININE 0.9 mg/dL (0.5-1.1); ESTIMATED GFR (MDRD EQUATION) > 60; POTASSIUM 3.6 mMol/L (3.7-5.1); SODIUM 141 mMol/L (135-145)
[2016-07-03 17:21] LABS: PROTIME 10.7 SECONDS (9.6-11.1)
--- NOTE | 2016-07-03 17:52 | NUR ---
Significant Event: AOx3, VS WNL on 2 L per nasal cannula. Edema to bilat lower ext seems improved compared to report. Lasix given as ordered and 2700 ml UOP since. Zosyn to L) chest port, which has good blood return, without complication. Now SL other than TPN which has not arrived as of this time. Has been up independently to rr, is steady on feet and denies dizziness. Appears to tolerate very well. Popsicle given x1 and tolerated well. No insulin required this shift. Very pleasant and cooperative with cares. Follow up: ID consult ordered. Per plan of care.
--- NOTE | 2016-07-04 04:49 | NUR ---
Significant Event: Patient alert and oriented. Up ad rah. Pressures 100s-1 teens/50s. Rates 60-70s. Oxygen remains at 2L per patients home dose. TPN started through port, peripheral IV to left upper arm for antibiotics. Morphine and zofran given x3 last at 0430. Pleasant and cooperative with cares. Follow up: continue to monitor
[2016-07-04 06:50] LABS: BASOPHIL # 0.1 K/uL (0.0-0.2); BASOPHIL % 0.7 %; EOSINOPHIL # 0.6 K/uL (0.0-0.5); EOSINOPHIL % 4.3 %; HEMATOCRIT 29.8 % (33.0-46.0); HEMOGLOBIN 9.4 g/dL (11.0-15.0); IMMATURE GRANULOCYTE % 0.3 %; LYMPHOCYTE # 3.2 K/uL (0.8-4.0); LYMPHOCYTE % 23.1 %; MCH 30.7 pg (27.0-34.0); MCHC 31.5 gm/dL (32.0-36.5); MCV 97.4 fl (83.0-98.0); MONOCYTE # 1.1 K/uL (0.0-1.0); MONOCYTE % 8.2 %; MPV 9.8 fl (9.4-12.4); NEUTROPHIL # (ANC) 8.7 K/uL (1.8-7.8); NEUTROPHIL % 63.4 %; NRBC % 0 /100WBC (0-0.00); PLATELET COUNT 382 K/uL (150-450); RBC 3.06 M/uL (3.50-5.50); RDW-CV 16.4 % (11.9-14.6); WBC 13.7 K/uL (4.0-11.0)
[2016-07-04 07:06] LABS: ALBUMIN 2.8 gm/dL (3.5-5.0); ANION GAP 11.9 (10.0-19.0); BLOOD UREA NITROGEN 12 mg/dL (6-24); CALCIUM 8.3 mg/dL (8.5-10.5); CHLORIDE 106 mMol/L (96-110); CO2 26 mMol/L (22-32); ESTIMATED GFR (MDRD EQUATION) > 60; PHOSPHORUS 3.6 mg/dL (2.5-4.9); POTASSIUM 3.9 mMol/L (3.7-5.1); SODIUM 140 mMol/L (135-145)
--- NOTE | 2016-07-04 11:43 | NUR ---
A - CONSULT RECEIVED TO RE-EVAL PPN PER PROTOCOL. RECEIVING PPN VIA PORT. 1-2+ EDMEA. LABS: ACCUCHECK WNL-REAS, GLU 108, ALB 2.8, WBC 13.7 MEDS: D10W, CYMBALTA, WELLBUTRIN, PROTONIX, SSI, ZOSYN, NAUSEA DIET: NPO. PPN @ 40 ML/HR PROVIDING 490 KCAL, 41 G PRO NEEDS: 4431-1283 KCAL, 83-138 G PRO D - INADEQUATE NUTRIENT INTAKE R/T INAPPOPRIATE PARENTERAL NUTRITION INFUSION RATE AEB PPN ONLY MEETING 33% MIN KCAL AND 49% MIN PRO NEEDS. I - GOAL FOR PARENTERAL NUTRITION TO MEET NUTRIENT NEEDS. REC PPN @ 110 ML/HR W/ 250 ML 20% LIPIDS MWF TO PROVIDE 5112-0915 KCAL (AVG 1560) AND 112 G PRO M/E - WILL MONITOR PN RATE F/U IN 2-3 DAYS.
[2016-07-04 13:33] LABS: BILIRUBIN URINE NEGATIVE (NEGATIVE); BLOOD URINE NEGATIVE /UL (NEGATIVE); COLOR URINE YELLOW (YELLOW); GLUCOSE URINE NEGATIVE (NEGATIVE); KETONE URINE NEGATIVE (NEGATIVE); LEUKOCYTES URINE NEGATIVE /UL (NEGATIVE); NITRITE URINE NEGATIVE (NEGATIVE); PROTEIN URINE NEGATIVE (NEGATIVE); TURBIDITY URINE CLEAR (CLEAR); UROBILINOGEN URINE NORMAL (NORMAL)
--- NOTE | 2016-07-04 15:35 | NUR ---
Significant Event: AOx3, VS WNL on 2 L per nasal cannula. Lungs dim with crackles to bases at times. TPN infusing to L) chest port without complication. Zosyn and NS TKO to L) upper arm without complication. Requests morphine and zofran Q4H, and also benadryl for itching. One popsicle just given, otherwise has only had sips and ice chips with pills. Ambulates to restroom independently and tolerates well. Urine sample sent for cultures. IS given with instruction. Pleasant and cooperative. Follow up: Repeat blood cultures in a.m. Possible port change surgery Wednesday.
[2016-07-05 04:45] LABS: BASOPHIL # 0.1 K/uL (0.0-0.2); BASOPHIL % 0.7 %; EOSINOPHIL # 0.6 K/uL (0.0-0.5); EOSINOPHIL % 5.8 %; HEMATOCRIT 29.6 % (33.0-46.0); HEMOGLOBIN 9.6 g/dL (11.0-15.0); IMMATURE GRANULOCYTE # 0.1 K/uL (0.0-0.3); IMMATURE GRANULOCYTE % 0.5 %; LYMPHOCYTE # 3.2 K/uL (0.8-4.0); MCH 31.4 pg (27.0-34.0); MCHC 32.4 gm/dL (32.0-36.5); MCV 96.7 fl (83.0-98.0); MONOCYTE # 0.9 K/uL (0.0-1.0); MONOCYTE % 8.7 %; MPV 9.9 fl (9.4-12.4); NEUTROPHIL # (ANC) 5.2 K/uL (1.8-7.8); NEUTROPHIL % 52.3 %; NRBC % 0 /100WBC (0-0.00); PLATELET COUNT 403 K/uL (150-450); RBC 3.06 M/uL (3.50-5.50); RDW-CV 16.3 % (11.9-14.6)
[2016-07-05 04:57] LABS: ALBUMIN 2.8 gm/dL (3.5-5.0); ANION GAP 11.8 (10.0-19.0); BLOOD UREA NITROGEN 14 mg/dL (6-24); CALCIUM 8.3 mg/dL (8.5-10.5); CHLORIDE 106 mMol/L (96-110); CO2 26 mMol/L (22-32); CREATININE 0.9 mg/dL (0.5-1.1); ESTIMATED GFR (MDRD EQUATION) > 60; PHOSPHORUS 3.4 mg/dL (2.5-4.9); POTASSIUM 3.8 mMol/L (3.7-5.1); SODIUM 140 mMol/L (135-145)
--- NOTE | 2016-07-05 06:43 | NUR ---
Significant Event: Patient alert/oriented x3. Vital signs stable. Continues on 2L O2. Morphine last given at 0400. Zofran given at 0000. TPN continues via chest port. Intermittent IV antibiotics via left upper arm peripheral IV. Q.6hr accuchecks. Patient can tolerate ice chips and popsicles, otherwise NPO due to short bowel syndrome. Up independently in the room. Follow up: Possible chest port revision on Wednesday.
--- NOTE | 2016-07-05 16:41 | NUR ---
Significant event: A&Ox3. Independent in room. Lung sounds clear, diminished bases. HR 60-70's, afebrile, SBP 100-110. Morphine for pain Q4H, last given at 1306, patient has requested a dose for 1700. IV antibiotics continue. Consult for Dr. Marroquin in AM, for port change, and will need catheter tip cultured. Follow Up: Continue current POC
--- NOTE | 2016-07-06 04:44 | NUR ---
Significant Event: Patient alert and oriented x 3. Complains of aching pain regularly that is relieved with morphine. Patient denies shortness of breath. Up in Room adlib, TPN infusion running. PAtient port flushes without issue, to be replaced and tip cultured tenatively today pending Dr Marroquin Consult. NPO except popsicles and ice chips. Patient cooperative with cares. 2300 accucheck required 2 units novolog. Follow up: Continue to monitor per POC
[2016-07-06 06:45] LABS: BASOPHIL # 0.1 K/uL (0.0-0.2); BASOPHIL % 0.6 %; EOSINOPHIL # 0.6 K/uL (0.0-0.5); EOSINOPHIL % 5.2 %; HEMATOCRIT 30.3 % (33.0-46.0); HEMOGLOBIN 9.9 g/dL (11.0-15.0); IMMATURE GRANULOCYTE # 0.1 K/uL (0.0-0.3); IMMATURE GRANULOCYTE % 0.5 %; LYMPHOCYTE # 2.6 K/uL (0.8-4.0); LYMPHOCYTE % 22.7 %; MCH 31.5 pg (27.0-34.0); MCHC 32.7 gm/dL (32.0-36.5); MCV 96.5 fl (83.0-98.0); MONOCYTE # 0.9 K/uL (0.0-1.0); MONOCYTE % 8.1 %; NEUTROPHIL # (ANC) 7.2 K/uL (1.8-7.8); NEUTROPHIL % 62.9 %; NRBC % 0 /100WBC (0-0.00); PLATELET COUNT 381 K/uL (150-450); RBC 3.14 M/uL (3.50-5.50); RDW-CV 15.9 % (11.9-14.6); WBC 11.4 K/uL (4.0-11.0)
[2016-07-06 07:01] LABS: ALBUMIN 2.7 gm/dL (3.5-5.0); ALK PHOS 217 IU/L (33-138); ALT 49 IU/L (12-78); ANION GAP 11.7 (10.0-19.0); AST 21 IU/L (10-40); BLOOD UREA NITROGEN 10 mg/dL (6-24); CALCIUM 8.7 mg/dL (8.5-10.5); CHLORIDE 105 mMol/L (96-110); CO2 26 mMol/L (22-32); CREATININE 0.9 mg/dL (0.5-1.1); ESTIMATED GFR (MDRD EQUATION) > 60; POTASSIUM 3.7 mMol/L (3.7-5.1); SODIUM 139 mMol/L (135-145); TOTAL PROTEIN 6.7 g/dL (6.0-8.4)
[2016-07-06 07:02] LABS: TOTAL BILIRUBIN 0.4 mg/dL (0.0-1.5)
--- NOTE | 2016-07-06 15:48 | NUR ---
Tried to stop in and see Jimena x2 today. First time she was busy with nursing and second time she was in her room with radiology. Will attempt to see tomorrow.
--- NOTE | 2016-07-06 19:03 | NUR ---
Significant Event: AOx3, VS WNL on 2 L per nasal cannula. TPN continues to L) chest port. Intermittant zosyn to L) upper arm. Dr Ocampo consulted today for possible chest port exchange, plan is to continue to monitor at this time. Morphine given prn for pain with minimal relief noted but patient satisfied. Up ad rah and steady on feet. Very pleasant and cooperative. Follow up: Per plan of care.
--- NOTE | 2016-07-07 07:06 | NUR ---
Significant Event: Patient alert and oriented x 3, denies shortness of breath, complains of pain x 3, last at approx 0530. Patient up in room ad rah, did not require insulin coverage this shift. Port flushes without issue, IV ABX through L AC. Follow up: Continue to monitor per POC
--- NOTE | 2016-07-07 10:17 | NUR ---
Introduced self and CM role to Jimena. I am familiar with her from previous admissions to [facility]. SW international organizer Mary present for our conversation. Jimena lives in [place] and plans to return there upon dismissal. She is on TPN/Lipids all the time at home at baseline. She gets them from [facility] and does have a history of getting her IV Abxs needs through them as well. Last time she was here, she was dismissed home with [facility], she is agreeable to go with them again if needed. Right now it is not known what she will need upon discharge as far as medications (IV vs PO) will be at this time, so CM will continue to follow and when that is known, help her get those items set up for her to have at home. Jimena denies any other questions, needs or concerns. She is up ad-rah in her room and doesn't use any assistive devices to get around with. Will continue to follow and assist.
--- NOTE | 2016-07-07 12:51 | NUR ---
A-NUTRITION F/U LABS: NA 139, K+ 3.7, GLU 150, BUN 10, TUCK POINTER 0.9, ALB 2.7 NO NEW MEDS DIET RX: NPO. 40 ML/HR PPN VIA PORT; PROVIDING 490 KCALS AND 41 GM PROTEIN EST NUTR NEEDS: 0351-2224 KCALS AND 83-138 GM PROTEIN. CURRENT PPN RATE MEETING 33% OF THE MIN. KCAL NEEDS AND 49% OF MIN. PROTEIN NEEDS. D-AT NUTRITION RISK W/INADEQUATE NUTRIENT INTAKE R/T INAPPROPRIATE PARENTERAL NUTRITION RATE AEB PPN ONLY MEETING 33% OF MIN KCAL NEEDS AND 49% OF MIN. PROTEIN NEEDS. I-RECOMMEND PPN AT 110 ML/HR W/250 ML 20% LIPIDS MWF TO PROVIDE 8186-3144 KCALS (AVG 1560 KCALS) AND 112 GM PROTEIN M/E-GOAL:PPN AND LIPIDS TO MEET 100% OF NUTRIEN. NEEDS 1)F/U PPN AND POC (2-3 DAYS) 2)ASSIST NEEDED
--- NOTE | 2016-07-07 12:55 | NUR ---
CURRENT DIET RX OF 40 ML/HR PPN IS PROVIDING 490 KCALS AND 41 GM PROTEIN. EST NUTR NEEDS ARE 0108-8641 KCALS AND 83-138 GM PROTEIN. RECOMMEND 110 ML/HR PPN W/250 ML 20% LIPIDS MWF; THIS WILL PROVIDE AVG OF 1560 KCALS AND 112 GM PROTEIN.
--- NOTE | 2016-07-07 15:32 | NUR ---
Significant Event: AOx3, VS WNL on 2 L per nasal cannula. Lungs have crackles to bases bilat. Chest [facility] with new needle as is patient's routine. TPN infusing without complication. Dressing changed to L) upper arm IV, still working well for intermittant Zosyn. Up independently in room and bathroom and tolerates well. Requests morpine Q4H and prefers Zofran at same time when able to have it. NPO, tolerates ice chips and a popsicle well. Pleasant and cooperative with cares. Follow up: ID to see tomorrow to give recommedations regarding positive blood cultures and port.
--- NOTE | 2016-07-08 03:11 | NUR ---
Significant Event:PT AAO X3.PLEASANT AND COROPERATIVE WITH CARES.NPO HOWEVER DOES REQUEST ICE CHIPS AT TIMES. UP AD MARTINA IN ROOM WITH NO COMPLICATIONS NOTED. CONTIENT OF BOWEL AND BLADDER. IV TO LEFT UPPER ARM RUNNING TKO,PORT TO LEFT CHEST AREA RUNNING HER TPN.BLOOD SUGARS EVERY 6HR. 02 PER NASAL CANNULA. VSS.PRN MORPHINE GIVEN PER REQUEST LAST AT 0030.PRN ZOFRAN ALSO GIVEN AT THAT TIME. Follow up:
[2016-07-08 04:44] LABS: BASOPHIL # 0.1 K/uL (0.0-0.2); BASOPHIL % 0.5 %; EOSINOPHIL # 0.7 K/uL (0.0-0.5); EOSINOPHIL % 5.3 %; HEMATOCRIT 31.1 % (33.0-46.0); HEMOGLOBIN 10.2 g/dL (11.0-15.0); IMMATURE GRANULOCYTE # 0.1 K/uL (0.0-0.3); IMMATURE GRANULOCYTE % 0.5 %; LYMPHOCYTE # 3.2 K/uL (0.8-4.0); LYMPHOCYTE % 24.3 %; MCH 31.5 pg (27.0-34.0); MCHC 32.8 gm/dL (32.0-36.5); MONOCYTE # 0.9 K/uL (0.0-1.0); MONOCYTE % 7.3 %; MPV 10.5 fl (9.4-12.4); NEUTROPHIL # (ANC) 8.1 K/uL (1.8-7.8); NEUTROPHIL % 62.1 %; NRBC % 0 /100WBC (0-0.00); PLATELET COUNT 412 K/uL (150-450); RBC 3.24 M/uL (3.50-5.50); RDW-CV 15.9 % (11.9-14.6)
[2016-07-08 04:59] LABS: ALBUMIN 2.7 gm/dL (3.5-5.0); ALK PHOS 198 IU/L (33-138); ALT 32 IU/L (12-78); ANION GAP 10.7 (10.0-19.0); AST 17 IU/L (10-40); BLOOD UREA NITROGEN 12 mg/dL (6-24); CALCIUM 8.6 mg/dL (8.5-10.5); CHLORIDE 102 mMol/L (96-110); CO2 29 mMol/L (22-32); CREATININE 0.9 mg/dL (0.5-1.1); ESTIMATED GFR (MDRD EQUATION) > 60; MAGNESIUM 1.9 mg/dL (1.3-2.6); POTASSIUM 3.7 mMol/L (3.7-5.1); SODIUM 138 mMol/L (135-145); TOTAL BILIRUBIN 0.4 mg/dL (0.0-1.5); TOTAL PROTEIN 6.9 g/dL (6.0-8.4)
--- NOTE | 2016-07-08 14:49 | NUR ---
Reviewed ID recommendations and also talked with Jimena's primary care RN Albina Pedro. Albina states that they are going to have to draw labs again at 48 hours to see which IV Abxs she will need to be dismissed on and to see if they will have to remove her port or not. I let her know I would continue to follow and assist and check back in later in the week to assess discharge needs at that time.
--- NOTE | 2016-07-08 16:00 | NUR ---
Significant Event: A/OX3, VSS ON 3L PER NC. PT. GETS UP AD MARTINA IN ROOM. 6mg OF MORPHINE GIVEN X2 LAST AT 1247 FOR COMPLAINTS OF PAIN. BLOOD CULTURES DRAWN OFF OF PORT TODAY. LEFT CHEST PORT HAS TPN @ 40mL/HR. IV ZOSYN CONTINUES Q8HR TO LEFT UPPER ARM IV. PT. MAY TRANSFER TO [facility] IF WE NEED THE BED. PT. WILL D/C TO HOME SOON DEPENDING ON BLOOD CULTURES & WHETHER OR NOT PORT NEEDS TO BE REMOVED. CARE MANAGEMENT IS AWARE. Follow up: CONTINUE WITH POC.
--- NOTE | 2016-07-09 04:46 | NUR ---
Significant Event: Patient is alert and oriented x 3. VSS on 3L O2. HRs in the 60s-70s. SBPs in the 1 teens. Afebrile. Up ad rah in room. Voiding well. Able to have popsicles and ice chips. Left upper forearm IV, saline locked. Receiving intermittent antibiotics. TPN running at 40 ml/hr in left chest port. Receives Zofran for nausea last at 0142. Receiving morphine for pain, also given last at 0142. Q6 hour accuchecks. Patient is pleasant and cooperative with cares. Follow up:
--- NOTE | 2016-07-09 10:30 | NUR ---
A - NUTRITION F/U. GLU 146, BUN/DRY GOODS CLERK 12/0.9, ALB 2.7, WBC 13.0. PT IS NPO W/ PPN AT 40 ML/HR = 490 KCALS, 41 GM PROTEIN. EST NEEDS: 1953-5262 KCALS, 83-138 GM PROTEIN. D - INADEQUATE NUTRIENT INTAKE R/T INADEQUATE NUTRIENT ALLOWANCE PER PN AEB PN MEETING 33% MIN KCAL AND 49% MIN PROTEIN NEEDS. I - GOAL: TO MEET PT NEEDS VIA EN. M/E - REC INCREASING PPN TO 110 ML/HR AND ADDING 250 ML 20% LIPIDS DAILY. POSSIBLE DC TOMORROW.
--- NOTE | 2016-07-09 10:38 | NUR ---
IF NOT DISCHARGING TOMORROW REC INCREASING PPN TO 110 ML/HR AND ADDING 250 ML 20% LIPIDS DAILY.
--- NOTE | 2016-07-09 14:51 | NUR ---
1145 Call to Mayela at [facility], updated her to let her know that Kristen would most likely be dismissing tomorrow and would need her TPN/Lipids continued and then she would also be going home on IV Abxs. Mayela states that this is fine and she would look for dismissal orders in the morning. I did go ahead and send over Jimena's ID progress note from her chart with medications on it. Let her know that as of this time, we were going to send her on the Q8 IV Abxs, but it might change to Q12 depending on what doctors decide. Mayela was fine with this and just states she would need discharge orders as soon as they were available. [address] Piña asking which medication would be most easiest for [facility], Q8 or Q12. I let her know that Q12 would probably be most easiest and if it did the same thing as the Q8, we might as well go with that one. Dr. Piña states she will change it to the Q12 IV Abxs and once cultures came back and if they were negative, Jimena would be able to dismiss tomorrow. Let her know that this was fine. Called and updated Mayela at [facility] to the change in medication frequency. Told her I would update her in the morning. I faxed in an update to [facility] [phone] and let them know that Jimena would most likely dismiss tomorrow and would need IV Abxs teachings. Phoned over to [place] office, , talked with Isabelle, she is familiar with Jimena and states that they will come out and do teachings with her. Also let her know I would update her tomorrow on time for dismissal and get her discharge orders to her as well. Discharge orders are printed and on the chart along with F2F for Dr. Piña to fill out. Will continue to follow and assist.
--- NOTE | 2016-07-09 17:06 | NUR ---
Significant Event: A/OX3, VSS ON 2L PER NC. MORPHINE GIVEN X2 LAST AT 1459 FOR COMPLAINTS OF PAIN, ZOFRAN ALSO GIVEN AT THIS TIME. TPN CONTINUES TO LEFT CHEST PORT. BLOOD CULTURES FROM PORT HAVE BEEN NEGATIVE SO FAR, WAITING FOR FINAL RESULTS TOMORROW TO DECIDE ON FURTHER TREATMENT. ZOSYN D/C'D, PT. STARTED ON [place] TODAY. LABS IN AM. UP AD MARTINA IN ROOM. D/C MEDS TO CHART IN AM. NEED STOOL SAMPLE FOR C-DIFF. Follow up: CONTINUE WITH POC.
--- NOTE | 2016-07-10 04:31 | NUR ---
A/O. HR 60-70s. SBP 110s. 2L O2 NC. AFEBRILE. L) CHEST PORT RUNNING TPN AT 40ML/HR. MORPHINE AND ZOFRANx3 FOR BACK PAIN AND NAUZEA. UP AD MARTINA IN ROOM. DENIES BM. Q6 ACCUCHECKS. CAN HAVE ICE CHIPS.
[2016-07-10 06:17] LABS: HEMATOCRIT 33.4 % (33.0-46.0); HEMOGLOBIN 10.9 g/dL (11.0-15.0); MCH 31.4 pg (27.0-34.0); MCHC 32.6 gm/dL (32.0-36.5); MCV 96.3 fl (83.0-98.0); MPV 10.8 fl (9.4-12.4); PLATELET COUNT 427 K/uL (150-450); RBC 3.47 M/uL (3.50-5.50); RDW-CV 15.9 % (11.9-14.6); WBC 12.1 K/uL (4.0-11.0)
[2016-07-10 06:42] LABS: ALBUMIN 2.9 gm/dL (3.5-5.0); ALK PHOS 216 IU/L (33-138); ALT 43 IU/L (12-78); BLOOD UREA NITROGEN 13 mg/dL (6-24); CALCIUM 8.8 mg/dL (8.5-10.5); CHLORIDE 101 mMol/L (96-110); CO2 27 mMol/L (22-32); CREATININE 0.9 mg/dL (0.5-1.1); ESTIMATED GFR (MDRD EQUATION) > 60; SODIUM 137 mMol/L (135-145); TOTAL PROTEIN 7.6 g/dL (6.0-8.4)
[2016-07-10 06:43] LABS: ANION GAP 13.1 (10.0-19.0); AST 32 IU/L (10-40); POTASSIUM 4.1 mMol/L (3.7-5.1); TOTAL BILIRUBIN 0.6 mg/dL (0.0-1.5)
[2016-07-10 07:16] LABS: LYMPHOCYTE # 1.3 K/uL (0.8-4.0); LYMPHOCYTE % 11 %; MONOCYTE # 0.8 K/uL (0.0-1.0); SEGMENTED NEUTROPHIL # 9.1 K/uL (1.8-7.8); SEGMENTED NEUTROPHIL % 75 %
[2016-07-10 07:17] LABS: ABSOLUTE NEUTROPHIL CT (ANC) 9.8 K/uL (1.8-7.8); BANDED NEUTROPHIL # 0.7 K/uL (0.0-0.1); BANDED NEUTROPHILS % 6 %
--- NOTE | 2016-07-10 12:01 | NUR ---
Dr. Piña rounded on Jimena, states that her labs look fine and she will be able to dismiss today. I phoned Mayela at [facility], let her know that we would be faxing over orders to her as soon as they were completed and her medication, along with her TPN/Lipids would need to be delivered to her home this afternoon. Mayela states that this is fine and they will get those all filled and on the road as soon as they can. I also called over to [facility], talked with Nighat, she states that they are aware of her and will be out to do teachings this evening with her. Discharge orders, meds and face to face sent to both [facility] ([phone]). Jimena in agreement to going home today with home infusion. No other questions, needs or concerns. Will continue to follow and assist.
[2016-07-10] MEDS ORDERED: MERREM1 GM IV (13:28)
[2016-07-10] MEDS ORDERED: PERCOCET 5-3251 EACH PO (13:53)
--- NOTE | 2016-07-10 16:26 | NUR ---
Patient dismissed to home with infusion therapy. Patient denies question or concern of dismissal. Port access left in place d/t patient being continuous TPN. Patient verbalizes understanding and eager to dismiss to home. Home with O2.
== END 2016-07-10 16:23 | disposition home health service (06) | DRG 314 ==
LOC: GMED 19:39 → GPCU 21:29
PROVIDERS: Family Medicine; Internal Medicine; Nurse Practitioner Family; Student in an Organized Health Care Education/Training Program; ADMIT Internal Medicine
DX: T80.211A Bloodstream infection due to central venous catheter, initial encounter (principal); A41.50 Gram-negative sepsis, unspecified; J96.21 Acute and chronic respiratory failure with hypoxia; K55.1 Chronic vascular disorders of intestine; K91.2 Postsurgical malabsorption, not elsewhere classified; D68.59 Other primary thrombophilia; Z68.43 Body mass index [BMI] 50.0-59.9, adult; R65.20 Severe sepsis without septic shock; E66.01 Morbid (severe) obesity due to excess calories; Z99.81 Dependence on supplemental oxygen; E11.9 Type 2 diabetes mellitus without complications; Z79.4 Long term (current) use of insulin; Z86.718 Personal history of other venous thrombosis and embolism; Z79.01 Long term (current) use of anticoagulants; Z86.711 Personal history of pulmonary embolism; G89.4 Chronic pain syndrome
CPT/HCPCS: C9113; J1170; J1650; J1940; J2185; J2270; J2405; J2543; J3010; J3370; J3480; J7030; J7040; J7050; Q9967

== ENCOUNTER 2016-10-09 20:36 | Emergency (ER) | payer MEDICAID ==
--- NOTE | ~2016-10-09 | ER ---
PATIENT'S NAME: PHILL NGUYEN [facility] AGE: 41 Y [address] ROOM: [place] [address] LOCATION: [facility] ADMIT DATE: 10/09/2016 ER/Outpatient Report DISCHARGE DATE: 10/10/2016 FAMILY PHYSICIAN: Nhan Colin MD ATTENDING PHYSICIAN: Fartun Ward Admission date and time documented on the medical record. I saw the patient at 2050 hours. CHIEF COMPLAINT: Chest pain. HISTORY OF PRESENT ILLNESS: The patient is a 41-year-old female who comes in with chest pain all day with some shortness of breath and diaphoresis. She has been out of her pain medications for couple of days. Her personal physician is not coming until next week. She is on some type of pain medication contract. She has taken all of her medications for her a lot of time according to her contract according to her. No nausea, vomiting, or diarrhea. The pain is stabbing in nature. The patient does have a history of hypercoagulable state and has had previous DVTs and PEs and mesenteric clots and ischemia. No fever, chills, or sweats. No cough, colds, or flus. No fall or trauma. Little lightheaded and dizzy, but no syncope or near syncope. No headache or eyes, ears, nose, throat, neck, or spine pain. No joint or muscle swelling, redness, or pain. No skin eruptions or rash. Does have a history of sxh-qehugwr-drwjlbkcu diabetes mellitus type 2. No neuro changes. No psych issues. HOME MEDICATIONS: See attached medication list. ALLERGIES: BENTYL AND DEXTROMETHORPHAN. SOCIAL HISTORY: Nonsmoker and nondrinker. SIGNIFICANT PAST MEDICAL HISTORY: Hypertension, exogenous obesity, hypercoagulable disorder, short-gut syndrome, parenteral nutrition, recurrent blood-borne infections, pulmonary embolism, deep vein thrombosis, sks-girrslj-syungwdfv diabetes mellitus type 2, acute kidney injury, chronic hypoxic respiratory failure, and portal vein thrombosis. OPERATIONS: Cholecystectomy, splenectomy, , small-bowel resection, tubal PATIENT'S NAME: PHILL NGUYEN [facility] AGE: 41 Y [address] ROOM: [place] [address] LOCATION: ED ADMIT DATE: 10/09/2016 ER/Outpatient Report DISCHARGE DATE: 10/10/2016 FAMILY PHYSICIAN: Nhan Colin MD ATTENDING PHYSICIAN: Fartun Ward ligation, and port placement and removal and replacement. REVIEW OF SYSTEMS: All systems reviewed by me are negative with the exception of those discussed in the history of present illness. PHYSICAL EXAMINATION: VITAL SIGNS: Temperature 98.4 tympanic, pulse 129 regular, respirations 16, blood pressure 138/74, and O2 saturation on 3 L oxygen per nasal cannula is 97%. Tyrone Coma Scale was 15. HEAD: Normocephalic. EYES: Extraocular muscles intact. PERRL. EARS, NOSE, THROAT: Clear. Mucous membranes moist. Teeth, jaw intact. NECK: No nuchal rigidity. No thyromegaly or adenopathy. No tenderness. SPINE: Negative. LUNGS: Clear. Good air flow. No rales, rhonchi, or wheezes. HEART: Regular. Pulses are palpable. No chest wall or ribcage pain to palpation. ABDOMEN: Soft, nondistended, nontender. Obese. No organomegaly or abnormal mass palpable. EXTREMITIES: Intact. NEUROVASCULAR: Intact. SKIN: Clear. LABORATORY DATA: D-dimer was elevated at 5.03. Troponin was normal. CPK was normal. CRP was 0.95. TSH was 1.8. ProBNP was 60. CMS was normal except for a low potassium of 3.1, elevated glucose 120. Magnesium 1.6. CPK was 50. White count 92720, 90 segs, 5 lymphs, 3 monos, 1 eosinophil. Hemoglobin is 11.4, hematocrit 34.5, and platelet count is 412,000. PTT was 23, pro-time was 10, INR 3.95. EKG showed sinus tach. No acute ST elevation, ischemic change, or arrhythmia. IMAGING: Chest x-ray showed no acute infiltrate or changes. We will review x-ray with radiologist. With the elevation of the D-dimer, we did do a CT scan with PE protocol of the abdomen and pelvis. On the CT scan of the chest, there is no emboli within the main pulmonary arteries; however, the remainder was suboptimal due to inadequate pulmonary arterial opacification. No change in comparison to previous CT scans of the chest. CT scan was read by Radiology. CT scan of the abdomen, unchanged from previous CT scans. See dictated transcribed reports. IMPRESSION: Chest pain, etiology uncertain. PATIENT'S NAME: PHILL NGUYEN [facility] AGE: 41 Y [address] ROOM: [place] [address] LOCATION: [facility] ADMIT DATE: 10/09/2016 ER/Outpatient Report DISCHARGE DATE: 10/10/2016 FAMILY PHYSICIAN: Nhan Colin MD ATTENDING PHYSICIAN: Fartun Ward PLAN: We did give the patient IV morphine in the emergency room for pain along with 10 mg of [place] orally. The patient refused second set of cardiac enzymes, desired to go home. She is to follow up in [facility] tomorrow morning at their regular [facility] for followup exam. Continue present home medications and care. Did set her up with Percocet 10/325 one every 4-6 hours p.r.n. pain, #4, no refills. Again, follow up with personal physician in on Wednesday morning [facility]. The patient understands and agrees with treatment. FARTUN WARD MD SDS/modl /[id number] d: 10/10/169 t: 10/10/16 1813, OUTPATIENT REPORT
[~2016-10-09 20:36] MED LIST changes: +LASIX40 MG PO; +MERREM1 GM IV; +WELLBUTRIN XL150 M1 PO
[2016-10-09 21:07] LABS: BASOPHIL # 0.1 K/uL (0.0-0.2); BASOPHIL % 0.3 %; EOSINOPHIL # 0.2 K/uL (0.0-0.5); EOSINOPHIL % 0.7 %; HEMATOCRIT 34.5 % (33.0-46.0); HEMOGLOBIN 11.4 g/dL (10.0-15.0); IMMATURE GRANULOCYTE # 0.3 K/uL (0.0-0.3); IMMATURE GRANULOCYTE % 1.1 %; LYMPHOCYTE # 1.1 K/uL (0.8-4.0); LYMPHOCYTE % 4.8 %; MCH 31.4 pg (27.0-34.0); MONOCYTE # 0.7 K/uL (0.0-1.0); MONOCYTE % 3.1 %; MPV 9.7 fl (9.4-12.4); NEUTROPHIL # (ANC) 20.6 K/uL (1.8-7.8); NRBC % 0 /100WBC (0-0.00); PLATELET COUNT 412 K/uL (150-450); RBC 3.63 M/uL (3.50-5.50)
[2016-10-09 21:08] LABS: WBC 22.9 K/uL (4.0-11.0)
[2016-10-09 21:27] LABS: ALBUMIN 3.1 gm/dL (3.5-5.0); ALK PHOS 109 IU/L (33-138); ALT 33 IU/L (12-78); ANION GAP 14.1 (10.0-19.0); AST 22 IU/L (10-40); BLOOD UREA NITROGEN 16 mg/dL (6-24); CALCIUM 8.5 mg/dL (8.5-10.5); CHLORIDE 106 mMol/L (96-110); CO2 22 mMol/L (22-32); CPK 50 IU/L (21-215); ESTIMATED GFR (MDRD EQUATION) > 60; MAGNESIUM 1.6 mg/dL (1.8-2.6); POTASSIUM 3.1 mMol/L (3.7-5.1); SODIUM 139 mMol/L (135-145); TOTAL BILIRUBIN 0.6 mg/dL (0.0-1.5); TOTAL PROTEIN 7.4 g/dL (6.0-8.4)
[2016-10-09 23:05] LABS: INR - (THERAPEUTIC) 0.95 (0.92-1.07); PTT 23 SECONDS (25-32)
== END 2016-10-10 00:54 | disposition disaster alternative care site (69) ==
LOC: GMED 20:36
PROVIDERS: Emergency Medicine
DX: R07.9 Chest pain, unspecified (principal); E11.9 Type 2 diabetes mellitus without complications; I12.9 Hypertensive chronic kidney disease with stage 1 through stage 4 chronic kidney disease, or unspecified chronic kidney disease; J96.11 Chronic respiratory failure with hypoxia; N17.9 Acute kidney failure, unspecified; I82.509 Chronic embolism and thrombosis of unspecified deep veins of unspecified lower extremity; Z88.8 Allergy status to other drugs, medicaments and biological substances; Z90.49 Acquired absence of other specified parts of digestive tract; Z90.81 Acquired absence of spleen; Z96.9 Presence of functional implant, unspecified
CPT/HCPCS: J2270; J2405; J7030; Q9967

== ENCOUNTER 2016-11-08 22:29 | Emergency (ER) | payer MEDICAID ==
--- NOTE | ~2016-11-08 | ER ---
PATIENT'S NAME: PHILL NGUYEN [facility] AGE: 41 Y [address] ROOM: [place] [address] LOCATION: [facility] ADMIT DATE: 11/08/2016 ER/Outpatient Report DISCHARGE DATE: 11/08/2016 FAMILY PHYSICIAN: Nhan Colin MD ATTENDING PHYSICIAN: Deshaun Nguyen Admission date and time documented in the medical record. I saw the patient at 2245 hours. CHIEF COMPLAINT: Left lower leg pain. HISTORY OF PRESENT ILLNESS: The patient is a 41-year-old female, who presented to the emergency room with left lower leg pain and swelling. Pain started yesterday, gradually got worse today. Has difficulty bearing weight. No trauma or fall. No chest pain or shortness of breath. No abdominal pain, nausea, vomiting, or diarrhea. No urinary symptomatology. No other joint or muscle swelling, redness, or pain. No skin eruptions or rash. No headache, eyes, ears, nose, throat, neck, or spine pain. No visual or auditory disturbance, lateralizing weakness, numbness, tingling, or loss of function. HOME MEDICATIONS: See attached medication list. ALLERGIES: BENTYL AND DEXTROMETHORPHAN. SOCIAL HISTORY: Nonsmoker. Nondrinker. SIGNIFICANT PAST MEDICAL HISTORY: Exogenous obesity, hypertension, hypercoagulable disorder, short-gut syndrome, parenteral nutrition, recurrent blood-borne infections, pulmonary embolism, deep vein thrombosis, nsv-hnmlhmv-nkazdibev diabetes mellitus type 2, acute kidney injury, chronic hypoxic respiratory failure, and portal vein thrombosis. OPERATIONS: Cholecystectomy, splenectomy, , small-bowel resection, tubal ligation, port placement removal, and then replacement. REVIEW OF SYSTEMS: All systems reviewed by me are negative with the exception of those discussed in the history of the present illness. PATIENT'S NAME: PHILL NGUYEN [facility] AGE: 41 Y [address] ROOM: [place] [address] LOCATION: [facility] ADMIT DATE: 11/08/2016 ER/Outpatient Report DISCHARGE DATE: 11/08/2016 FAMILY PHYSICIAN: Nhan Colin MD ATTENDING PHYSICIAN: Deshaun Nguyen PHYSICAL EXAMINATION: VITAL SIGNS: Temperature 98.2, tympanic; pulse 78, regular; respirations 16; blood pressure 131/60; O2 saturation on room air is 100% on examination. LUNGS: Clear. HEART: Regular. ABDOMEN: Obese, soft, nondistended, nontender. Good bowel tones. EXTREMITIES: The patient has tenderness to the left lower extremity. There is no noticeable swelling. No redness. No open wounds. No bruising or contusions. NEUROVASCULAR: Intact. Pulse intact. Range of motion of all 4 extremities in all joints. No Homans sign on the left leg. Venous Doppler study was negative for DVT. LABORATORY DATA: White count is 9200, 44 segs, 40 lymphs, 11 monos, 4 eos, 1 baso; hemoglobin is 10.7, hematocrit is 31.7, platelet count is 373,000. PTT is 26, pro-time is 9.8 with an INR 0.93. Sedimentation rate was elevated at 55. CMS was normal except for low potassium of 3.6, elevated glucose 230, low calcium of 8.2, CPK was 47, CK-MB less than 0.5, troponin less than 0.04, lactate was 1.4, procalcitonin was 0.08. IMPRESSION: Left lower leg pain. Etiology uncertain. No evidence of trauma. No evidence of infection. No DVT. No swelling. No redness. No bruising. PLAN: The patient dismissed home. Observation. Activity as tolerated. Continue home medications and care. Cold or warm packs to sore areas intermittently as needed. Percocet 5/325 as needed for pain #6. Aleve 1 to 2 orally 2 times a day with food. Follow up with personal physician in 2 to 3 days. Discussion ensued with the patient concerning my findings, recommendations, and interpretation. MD JANE TRAYLOR/modl /[id number] d: 11/09/165 t: 11/09/161810, OUTPATIENT REPORT
--- NOTE | ~2016-11-08 | ENPV ---
Vascular Lower Extremities DVT Study Procedure Demographics Patient Name PHILL NGUYEN Date of Study 11/08/2016 Patient Number [id number] Gender Female Date of 1975 Age 41 Visit Number [id number] Height Accession Number [id number] Weight Room Number BSA BMI Referring Wendy Jin MD Interpreting Bal Carolina MD Physician Cristi Morris MD Physician Physician Ordering Physician Wendy Jin Architect Manager Fine Craft Artist Figueroa Ulloa, [facility] Conclusions Summary No evidence of deep vein thrombosis or superficial thrombophlebitis in the left lower extremity. Compression of the left superficial femoral artery was not performed secondary to the patient's pain, vein is patent by color fill. Procedure Type of Study: Veins:Lower Extremities DVT Study, Lower Extremity Left. Indications for Study:Unilateral pain and edema. Additional Indications:Pain in the Left lower extremity Appropriate Use Criteria:9 Patient Status:STAT. Study Location:ER. Technical Quality:Limited visualization due to wounds/dressings. - Preliminary reported to:. Velocities are measured in cm/s ; Diameters are measured in cm Right Lower Extremities DVT Study Measurements Right 2D and Doppler Measurements + + + + +------+------+ + !Location !Visualized!Compressibility!Thrombosis!Signal!Reflux!Reflux ! ! ! ! ! ! ! !(sec) ! + + + + +------+------+ + !GSV Thigh !Yes !Yes !None !Phasic!No ! ! + + + + +------+------+ + !Common !Yes !Yes !None !Phasic!No ! ! !Femoral ! ! ! ! ! ! ! + + + + +------+------+ + !Prox !Yes !Yes !None !Phasic!No ! ! !Femoral ! ! ! ! ! ! ! + + + + +------+------+ + !Mid Femoral!Yes !Yes !None !Phasic!No ! ! + + + + +------+------+ + !Dist !Yes !Yes !None !Phasic!No ! ! !Femoral ! ! ! ! ! ! ! + + + + +------+------+ + !Popliteal !Yes !Yes !None !Phasic!No ! ! + + + + +------+------+ + !Gastroc !Yes !Yes !None ! ! ! ! + + + + +------+------+ + !PTV !Yes !Yes !None ! ! ! ! + + + + +------+------+ + !Peroneal !Yes !Yes !None ! ! ! ! + + + + +------+------+ + Left Lower Extremities DVT Study Measurements Left 2D and Doppler Measurements + + + + +------+------+ + !Location !Visualized!Compressibility!Thrombosis!Signal!Reflux!Reflux ! ! ! ! ! ! ! !(sec) ! + + + + +------+------+ + !Common !Yes !Yes !None !Phasic!No ! ! !Femoral ! ! ! ! ! ! ! + + + + +------+------+ + Signature dtt: DARYL BUENO dtquinton: 11/08/16 2315 Physician Self Edit
[2016-11-08 23:19] LABS: BASOPHIL # 0.1 K/uL (0.0-0.2); BASOPHIL % 0.9 %; EOSINOPHIL # 0.3 K/uL (0.0-0.5); EOSINOPHIL % 3.5 %; HEMATOCRIT 31.7 % (33.0-46.0); HEMOGLOBIN 10.7 g/dL (10.0-15.0); IMMATURE GRANULOCYTE % 0.2 %; LYMPHOCYTE # 3.7 K/uL (0.8-4.0); LYMPHOCYTE % 40.3 %; MCH 31.7 pg (27.0-34.0); MCHC 33.8 gm/dL (32.0-36.5); MCV 93.8 fl (83.0-98.0); MONOCYTE # 1.1 K/uL (0.0-1.0); MONOCYTE % 11.4 %; MPV 9.8 fl (9.4-12.4); NEUTROPHIL % 43.7 %; NRBC % 0 /100WBC (0-0.00); PLATELET COUNT 373 K/uL (150-450); RBC 3.38 M/uL (3.50-5.50); RDW-CV 15.3 % (11.9-14.6); WBC 9.2 K/uL (4.0-11.0)
[2016-11-08 23:27] LABS: INR - (THERAPEUTIC) 0.93 (0.92-1.07); PROTIME 9.8 SECONDS (9.8-11.4); PTT 26 SECONDS (25-32)
[2016-11-08 23:34] LABS: ALBUMIN 2.9 gm/dL (3.5-5.0); ALK PHOS 99 IU/L (33-138); ALT 30 IU/L (12-78); ANION GAP 10.6 (10.0-19.0); AST 14 IU/L (10-40); BLOOD UREA NITROGEN 16 mg/dL (6-24); CALCIUM 8.2 mg/dL (8.5-10.5); CHLORIDE 109 mMol/L (96-110); CO2 22 mMol/L (22-32); CPK 47 IU/L (21-215); CREATININE 0.8 mg/dL (0.5-1.1); ESTIMATED GFR (MDRD EQUATION) > 60; POTASSIUM 3.6 mMol/L (3.7-5.1); SODIUM 138 mMol/L (135-145); TOTAL PROTEIN 7.4 g/dL (6.0-8.4)
[2016-11-08 23:35] LABS: TOTAL BILIRUBIN 0.2 mg/dL (0.0-1.5)
== END 2016-11-08 23:54 | disposition disaster alternative care site (69) ==
LOC: GMED 22:29
PROVIDERS: Emergency Medicine
DX: M79.662 Pain in left lower leg (principal); I10 Essential (primary) hypertension; I26.99 Other pulmonary embolism without acute cor pulmonale; I82.409 Acute embolism and thrombosis of unspecified deep veins of unspecified lower extremity; E11.9 Type 2 diabetes mellitus without complications; N17.9 Acute kidney failure, unspecified; J96.11 Chronic respiratory failure with hypoxia; E66.09 Other obesity due to excess calories; D68.59 Other primary thrombophilia; I81 Portal vein thrombosis; Z90.49 Acquired absence of other specified parts of digestive tract; Z90.81 Acquired absence of spleen; Z98.890 Other specified postprocedural states; Z79.899 Other long term (current) drug therapy; Z88.8 Allergy status to other drugs, medicaments and biological substances; Z98.51 Tubal ligation status

== ENCOUNTER 2016-12-30 20:22 | Inpatient (IN) | payer MEDICAID ==
[~2016-12-30] VITALS: Ht 162.6 cm; Wt 133.7 kg
--- NOTE | ~2016-12-30 | ECHO ---
Transesophageal Echocardiography Report (MYRTLE) Demographics Patient Name PHILL NGUYEN Date of Study 01/03/2017 Patient Number [id number] Visit Number [id number] Date of 1975 Room Number G6327 Gender Female Number Age 41 year(s) Referring Ahmet Morris MD Web Production Manager Vicente Munguia T, Physician RICHY LUTZ [facility] Physician Interpreting Carlita Roman Loftsman Physician A Supervising Ordering MD/MLP Physician Nurse Stress Bundle Tier And Labeler Conclusions Summary No vegetations are seen. Overall normal echocardiogram. Procedure Type of Study MYRTLE procedure Procedure Date Date: 01/03/2017 Start: 09:33 AM Study Location: Inpatient Portable Technical Quality: Good visualization Indications:Endocarditis. Additional Indications:Recurrent infection Appropriate Use Criteria: 8 Patient Status: Routine Rhythm: NSR HR: 92 bpm BP: 113/55 mmHg MYRTLE Performed By: the attending and the balance assembler Findings Left Ventricle The left ventricle is normal in size . Normal left ventricular wall thickness. Estimated EF: 55-60 %. Right Ventricle Normal right ventricular size and function. Left Atrium Normal left atrial size. Right Atrium The right atrium is not dilated. Mitral Valve Trivial mitral regurgitation. Normal mitral valve. Aortic Valve Normal trileaflet aortic valve. Tricuspid Valve Mild tricuspid regurgitation . Pericardial Effusion No pericardial effusion. Miscellaneous Ascending aorta is not dilated. No significant thoracic aorta atherosclerosis. Signature dtt: Audrey Zazuetad: 01/03/17 0933 Physician Self Edit
--- NOTE | ~2016-12-30 | OR ---
PATIENT'S NAME: PHILL NGUYEN [facility] AGE: 41 Y [address] ROOM: [place] [address] LOCATION: [facility] ADMIT DATE: 12/30/2016 OR/Procedure Report DISCHARGE DATE: 01/07/2017 FAMILY PHYSICIAN: Rudy Leo MD ATTENDING PHYSICIAN: WOODROW ATKINSON SURGEON: Rudy Ocampo MD FOOD PRODUCT INSPECTOR: DATE OF PROCEDURE: 01/06/2017 REFERRING PHYSICIAN: Woodrow Atkinson MD. PREOPERATIVE DIAGNOSES: 1. History of short gut syndrome with history of TPN via left subclavian port. 2. Sepsis. 3. Infected port with desire for removal. POSTOPERATIVE DIAGNOSES: 1. History of short gut syndrome with history of TPN via left subclavian port. 2. Sepsis. 3. Infected port with desire for removal. PROCEDURE: Removal of left subclavian vein based port. ANESTHESIA: IV sedation with 10 mL 1% Xylocaine. SPECIMEN: Port, not sent. INDICATION: The patient is a 41-year-old young lady, who has short gut syndrome and is maintained on total parental nutrition. I was asked by Dr. Atkinson and Dr. Piña to remove the port due to sepsis from bacteremia. DESCRIPTION OF PROCEDURE: After informed consent, the patient was taken to the operating room. After IV sedation, the anterior left chest was prepped and draped into a sterile field. Local anesthetic infiltrated in the previous incision placement of the left subclavian vein based port. We then made an incision sharply with a 10-blade scalpel, carried down in subcutaneous tissue, identified the tubing, removed it from the subclavian vein, held pressure. We then excised the port and its capsule intact. The port was not sent as specimen. We closed subcutaneous tissue with 3-0 Vicryl and the skin closed with subcuticular 4-0 Vicryl. Steri-Strips and sterile dressings were applied. The patient tolerated the procedure well and transferred to recovery room in stable condition. PATIENT'S NAME: PHILL NGUYEN [facility] AGE: 41 Y [address] ROOM: [place] [address] LOCATION: [facility]PCU ADMIT DATE: 12/30/2016 OR/Procedure Report DISCHARGE DATE: 01/07/2017 FAMILY PHYSICIAN: Rudy Leo MD ATTENDING PHYSICIAN: WOODROW ATKINSON MD SHERRON WEBBER/modl /[id number] d: t: 01/12/17 0926, OPERATIVE SUMMARY
--- NOTE | ~2016-12-30 | ER ---
PATIENT'S NAME: PHILL NGUYEN [facility] AGE: 41 Y [address] ROOM: [place] [id number] LOCATION: GPCU ADMIT DATE: 12/30/2016 ER/Outpatient Report DISCHARGE DATE: FAMILY PHYSICIAN: Rudy Leo MD ATTENDING PHYSICIAN: CORTNEY ATKINSON TIME OF ARRIVAL: 2021. TIME SEEN: 2054 hours. IDENTIFICATION: A 41-year-old female. CHIEF COMPLAINT: Abdominal pain. HISTORY OF PRESENT ILLNESS: The patient is a 41-year-old female with multiple medical problems who presents with 2 to 3 day history of abdominal pain, vomiting, and fever. She had a T-max of 102 last night. Today, she has taken Advil throughout the day; so, her temperature has not been high throughout the day today. She has had nausea, vomiting. No diarrhea. Last bowel movement was this morning and was normal. She said she had some lab drawn at the [facility] yesterday and was called today and told that she should come in to be checked because her blood apparently clotted quickly when they caio it yesterday from her port. She said she just does not feel right. She said she feels kind of "fuzzy" in the head. ALLERGIES: BENTYL AND DEXTROMETHORPHAN. CURRENT MEDICATIONS: 1. Advil 800 mg q.6 h. 2. Lovenox 180 mg b.i.d. 3. Fluoxetine 40 mg daily. 4. TPN daily. 5. Furosemide 40 mg daily. 6. Spironolactone 50 mg daily. 7. Bupropion 150 mg daily. 8. Percocet p.r.n. 9. Metformin 500 mg b.i.d. 10. Pantoprazole 40 mg daily. 11. Vitamin D 50,000 international units once weekly. PATIENT'S NAME: NANCY NGUYENLY Nadir [facility] AGE: 41 Y [address] ROOM: [address] [address] LOCATION: GPCU ADMIT DATE: 12/30/2016 ER/Outpatient Report DISCHARGE DATE: FAMILY PHYSICIAN: Rudy Leo MD ATTENDING PHYSICIAN: CORTNEY ATKINSON 12. Ondansetron 4 mg q.4 h. p.r.n. 13. O2 at 2 to 3 L per nasal cannula. 14. Atorvastatin 10 mg at h.s. 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 PRIOR SURGERIES: Tonsillectomy, tubal ligation, section, splenectomy, and small intestine resection. FAMILY HISTORY: Father with CVA. SOCIAL HISTORY: The patient lives here in [place]. She has a significant other and 4 children. Tobacco use, denies. Alcohol use, denies. Drug use, denies. REVIEW OF SYSTEMS: All systems reviewed and negative other than what is noted in the HPI. PHYSICAL EXAMINATION: VITAL SIGNS: Height 5 feet, 4 inches, weight 135.5 kg. Blood pressure 111/53, pulse 77, respirations 18, temp 98.2, and sats 98% on 3 L per nasal cannula. GENERAL: A 41-year-old female in moderate distress. HEENT: Unremarkable. Head: Normocephalic, atraumatic. Ears: TMs translucent both ears. Eyes: Pupils equal and reactive to light and accommodation. Extraocular movements intact. Nose: Mucosa pink. No lesions. Mouth: No lesions. Pharynx benign. NECK: Supple. No lymphadenopathy. LUNGS: Clear to auscultation. HEART: Regular rate and rhythm. ABDOMEN: Protuberant, bowel sounds present, soft, nondistended, diffusely tender to palpation. No rebound or guarding. SKIN: [place], warm, and dry. No lesions or rashes noted. NEURO: No focal deficit. No lower extremity edema. No calf tenderness. EMERGENCY DEPARTMENT COURSE: An IV was initiated with normal saline at 150 mL/hr. The patient is given Zofran 4 mg IV for nausea, Dilaudid 0.25 mg x2 for pain with no improvement; PATIENT'S NAME: PHILL NGUYEN [facility] AGE: 41 Y [address] ROOM: [id number] [place], [place] [address] LOCATION: GPCU ADMIT DATE: 12/30/2016 ER/Outpatient Report DISCHARGE DATE: FAMILY PHYSICIAN: Rudy Leo MD ATTENDING PHYSICIAN: CORTNEY ATKINSON so, then was given fentanyl 50 mcg with some improvement. Procalcitonin 17.07. UA 2 to 5 white cells, 10 to 20 epithelials. Urine culture pending. Blood cultures x2 pending. Sodium 135, potassium 3.9, chloride 103, CO2 22, BUN 20, creatinine 1.2, blood sugar 328. Liver enzymes normal. Amylase 27, lipase 183. Hemoglobin 12, hematocrit 35.1, platelets 289, white count 17.5 with normal differential. INR 1.01. Beta-hydroxybutyrate 0.9. Hemoglobin A1c 9.9. Troponin I less than 0.040. EKG normal sinus rhythm at 65 beats per minute. No acute ST-elevation or depression. Blood pressure remained greater than 100 systolic with a mean arterial blood pressure greater than or equal to 65 throughout her stay here in the emergency room. Head CT without contrast, no acute findings. Abdomen and pelvis CT with no contrast, chronic liver disease with enlargement of the left lateral segment, prior cholecystectomy, cavernous transformation of the portal vein, scattered venous collaterals including esophageal varices and upper abdominal varices, prior splenectomy, small hiatal hernia, tiny ventral hernia containing fat only, no bowel obstruction, no bowel wall thickening, no appendicitis, scattered prominent mesenteric lymph nodes and venous collaterals primarily within the lower anterior abdomen, reticulation in the anterior mesenteric fat likely related to chronic liver disease, and no significant change from prior study. Severe sepsis protocol was initiated and time zero was 2215. The patient was initiated on vancomycin and meropenem for sepsis orders and repeat lactate was ordered at 0115. The patient was taken to PCU in stable condition for admission per Dr. Atkinson, hospitalist, Dr. Leo, her primary care physician was contacted and he requested hospitalist admission. IMPRESSION: 1. Severe sepsis. 2. Abdominal pain. 3. 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 4. Diabetes mellitus type 2 with hyperglycemia. 5. History of hypercoagulable state. KIRBY MCELROY MD CAR/modl /[id number] d: 12/31/16 0420 t: 01/01/17 0149, OUTPATIENT REPORT
--- NOTE | ~2016-12-30 | DS ---
PATIENT'S NAME: PHILL NGUYEN [facility] AGE: 41 Y [address] ROOM: [address] [place], [place] [address] LOCATION: GPCU ADMIT DATE: 12/30/2016 Discharge Summary DISCHARGE DATE: 01/07/2017 FAMILY PHYSICIAN: Rudy Leo MD ATTENDING PHYSICIAN: Woodrow Bejarano FINAL DIAGNOSES: 1. Achromobacter xylosoxidans sepsis. 2. History of diabetes mellitus, type 2, converted to insulin using. 3. Hypercoagulable state. 4. Chronic hypoxic respiratory failure, on 2 L of oxygen per nasal cannula. 5. 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 6. Essential hypertension. HISTORY OF PRESENT ILLNESS: Please see the history and physical dictated by Dr. Bejarano for details. In short, the patient presented to the hospital with generalized weakness, and just not feeling very well for the two days prior. She had been noted to have a temperature at home. She was seen in the emergency room, and was found to have an elevated white blood cell count and have acute on chronic hypoxic respiratory failure. LABORATORY DATA: Sodium on admission was 135 and discharge was 134; potassium on admission was 3.9, as low as 3.4, and most prior to discharge was 4; BUN on admission was 15 and discharge was 10; and creatinine on admission was 0.9, got as high as 1.2, and discharge was 0.6. Her alkaline phosphatase on admission was 111, it did increase up to 248; AST on admission was 17, got as high as 80, and went down to 23; ALT on admission was 32, went as high as 89 and most prior to discharge was 50. Magnesium on admission was 1.8. Troponin on admission was negative. Hemoglobin A1c was 9.9. White blood cell count on admission was 17.5 with a left shift, the decline most prior to discharge was 10; hemoglobin on admission was 12 and most prior to discharge was 11.2; and platelet count on admission was 289 and at discharge was 454. INR on admission was 1.01. Procalcitonin on admission was 17.07 and on the was 7.46. Urinalysis on admission had 30 protein and 250 glucose. Microbiology Data: Blood cultures obtained on the and were positive for Achromobacter xylosoxidans, one set was from peripheral and one set was from the port. Blood cultures drawn on January 05 were negative. RADIOLOGY DATA: Chest x-ray on admission did not show any evidence of a pneumonia. Abdominal x-ray on admission did not show any acute change. Her CT scan of the abdomen did not show any acute pathology. She had chronic PATIENT'S NAME: PHILL NGUYEN [facility] AGE: 41 Y [address] ROOM: [address] [place] [address] LOCATION: GPCU ADMIT DATE: 12/30/2016 Discharge Summary DISCHARGE DATE: 01/07/2017 FAMILY PHYSICIAN: Rudy Leo MD ATTENDING PHYSICIAN: Woodrow Bejarano liver disease. CT scan of the head done for headache was normal. Thoracic spine MRI with degenerative changes of spine for question of diskitis was negative. CARDIOVASCULAR DATA: A MYRTLE was normal and no vegetations seen. HOSPITAL COURSE: The patient was admitted to the hospital with a diagnosis of acute sepsis. She was initiated on the sepsis protocol and received IV fluids. She was empirically started on meropenem and vancomycin. She was given aggressive IV hydration. She was also started on linezolid and Levaquin. Blood cultures were obtained from the port and from her peripheral site. The patient was really quite ill. She was having a lot of abdominal pain, and was using IV pain medications. Her electrolytes were low and she was given potassium chloride. Her blood sugars were quite elevated from her chronic TPN, and based on her hemoglobin A1c of 9.9, she was initiated on Levemir. Her blood cultures did return positive for Gram-negative rods. The next day was as noted to be Achromobacter. Her antibiotics Zyvox and Levaquin were stopped, and she was continued on the Levaquin until ID came back, at which time she was placed on meropenem. Because of the ongoing pain, an MRI of her lumbar and thoracic spine was done to rule out diskitis. A MYRTLE was done and it was negative for vegetation. It was felt that most likely it was secondary to the port, and that the port needed to be removed. Surgery was consulted for this. The port was removed on January 05. We needed to get a PICC line placed. Unfortunately, the Vascular Access team was unsuccessful, so we had to have that done by Interventional Radiology on January 07. During this time frame, there was a significant concern about her treatment for her short bowel syndrome and requiring TPN. From a surgery standpoint, there was significant concern about ability to continue to get ports. At that time, [facility]. Someone will be contacting her to see if she is a candidate for some other type of nutrition, may be a PEG with an elemental tube feed. Also, during the hospital stay, the patient did start on insulin. The Diabetic educators did give her a meter, and she was educated on how to give herself insulin. She was continued on her long-term anticoagulation because of her hypercoagulable state. Arrangements were made for her to get the home infusion antibiotics. It was felt that she was stable for discharge on January 07, 2017. FAY DENTON MD PATIENT'S NAME: PHILL NGUYEN [facility] AGE: 41 Y [address] ROOM: [place] [address] LOCATION: GPCU ADMIT DATE: 12/30/2016 Discharge Summary DISCHARGE DATE: 01/07/2017 FAMILY PHYSICIAN: Rudy Leo MD ATTENDING PHYSICIAN: Woodrow Bejarano/carlos manuel /[id number] CC: MD Alexei Waters MD William T Sorrell, MD d: 01/08/17 0218 t: 01/11/17 1426, DISCHARGE SUMMARY
--- NOTE | ~2016-12-30 | HP ---
PATIENT'S NAME: NANCY NGUYENLY Nadir [facility] AGE: 41 Y [address] ROOM: [place] [address] LOCATION: GPCU ADMIT DATE: 12/30/2016 History & Physical DISCHARGE DATE: FAMILY PHYSICIAN: Rudy Leo MD ATTENDING PHYSICIAN: CORTNEY ATKINSON DATE OF SERVICE: CHIEF COMPLAINT: Generalized weakness, chronic abdominal pain, nausea and vomiting, fever, and chills. HISTORY OF PRESENT ILLNESS: This is a 41-year-old female, who says that for the last 2 days she has stopped using her TPN for nutrition given that she has been feeling weak in general and also with acute on chronic diffuse abdominal pain, also has been feeling chills, and also had a low-grade fever at home yesterday of 100.2. She also felt nauseous and vomited a few times yesterday as well. She gets her port exchanged every Wednesday due to her history of hypercoagulable state that gets clogged and she uses the port for her TPN. Last time she exchanged the port was this Wednesday which was yesterday. Because of all these problems, she came here for evaluation. She does have a history recurrent bacteremia and last bacteremia was when she was admitted here in July 2016 from Achromobacter xylosoxidans secondary to central line associated bloodstream infection for which she received meropenem. She denies any other symptoms. REVIEW OF SYSTEMS: As mentioned in the history of present illness. All other systems were reviewed and were negative except those mentioned in history of present illness. PAST MEDICAL HISTORY: 1. History of Achromobacter xylosoxidans bacteremia from central line infection in July 2016. 2. Chronic ischemic bowel disease. 3. Chronic respiratory failure, on home oxygen 2-3 L nasal cannula 23/11 secondary to history of pulmonary embolism and morbid obesity. 4. DVT in the past. 5. Hypothyroidism. 6. Morbid obesity. 7. Diabetes type 2. PATIENT'S NAME: PHILL NGUYEN [facility] AGE: 41 Y [address] ROOM: [place] [address] LOCATION: GPCU ADMIT DATE: 12/30/2016 History & Physical DISCHARGE DATE: FAMILY PHYSICIAN: Rudy Leo MD ATTENDING PHYSICIAN: CORTNEY ATKINSON 8. Hypertension. 9. Hyperlipidemia. 10. Short bowel syndrome and chronic ischemic colitis dependent on chronic total parenteral nutrition. 11. Chronic pain syndrome. 12. Hypercoagulable state, on Lovenox. ALLERGIES: DEXTROMETHORPHAN CAUSES CHEST TIGHTNESS AND TROUBLE BREATHING AND ALSO BENTYL CAUSES TROUBLE BREATHING AND RASH. HOME MEDICATIONS: Currently is being reconciled. SOCIAL HISTORY: Denies any alcohol or cigarette or any illegal drug use. FAMILY HISTORY: Father had a stroke. Cannot remember much about the mother. PAST SURGICAL HISTORY: 1. . 2. Tonsillectomy. 3. Splenectomy. 4. Cholecystectomy. 5. Tubal ligation. PHYSICAL EXAMINATION: VITAL SIGNS: At the time of my evaluation, temperature 98.3, heart rate 84, respirations 16, blood pressure 129/74, saturation 100% on 3 L nasal cannula. GENERAL APPEARANCE: Alert and oriented x3. Currently, in no acute distress. HEENT: Pupils are equally round and reactive to light. Extraocular muscles intact. Anicteric sclerae. Nasal turbinates are normal bilaterally. NECK: No JVD. CARDIOVASCULAR: Regular rate and rhythm. Normal S1, S2. No murmur, no rubs, no gallops. RESPIRATORY: Clear to auscultation. No rales, no rhonchi, no wheezing, no crackles. ABDOMEN: Obese, soft, mildly tender diffusely to palpation which is chronic for her, no abdominal rigidity, no distention, soft, bowel sounds present. No mass. EXTREMITIES: No edema in upper or lower extremities. NEUROLOGICAL: Grossly nonfocal. SKIN: No ulcer, no rash, no cyanosis. PATIENT'S NAME: PHILL NGUYEN [facility] AGE: 41 Y [address] ROOM: [place] [address] LOCATION: GPCU ADMIT DATE: 12/30/2016 History & Physical DISCHARGE DATE: FAMILY PHYSICIAN: Rudy Leo MD ATTENDING PHYSICIAN: CORTNEY ATKINSON LABORATORY DATA: Lactic acid 1.3. Troponin less than 0.04. White blood cells 17.5, hemoglobin 12, hematocrit 35.1, platelet 289. Glucose 328, BUN 20, creatinine 1.2. Sodium 135, potassium 3.9, chloride 103, CO2 of 22, calcium 8.6, total protein 8.0, albumin 3.0, AST 57, ALT 55, alkaline phosphatase 135, total bilirubin 0.5. Anion gap 13.9. A1c on December 30, 2016, was 9.9. INR 1.01. Urinalysis negative for UTI. Lipase 183, amylase 27. GFR 57. Procalcitonin 17.07. IMAGING STUDIES: 1. Chest x-ray on admission: The official reading is pending, based on my review unremarkable. 2. CT of the abdomen and pelvis on admission without contrast based on the preliminary review, it was read as several findings that are chronic and has not changed from before including evidence for chronic liver disease. No bowel obstruction, no pneumoperitoneum, no pneumatosis. Inflammatory changes of the anterior lower abdomen are unchanged, but could represent a mild mesenteritis. 3. CT of the head without contrast based on the preliminary review on admission showed no acute intracranial process. Moderate left mastoid and middle ear effusion and/or granulation tissue. Correlate clinically for mastoiditis or otitis media. 4. EKG on admission, December 30, 2016, at 10:21 p.m. showed sinus rhythm, heart rate of 65 beats per minutes. No acute ischemic changes. ASSESSMENT AND PLAN: 1. Regarding her severe sepsis secondary to potential bacteremia from chronic TPN (severe sepsis order set is completed and charted): We will treat her empirically and broadly with IV linezolid, IV Levaquin, and also IV meropenem. We will get 2 sets of blood cultures from peripheral and 2 sets from the port. Continue IV fluids with normal saline. I will watch her closely. Start vasopressor if necessary. Further plan will depend on clinical course. 2. Chronic mesenteritis: Follow up with official report of the CT abdomen and pelvis in the morning. N.p.o. Consult Nutrition for TPN. Can resume TPN once is appropriate given that there is a concern about mesenteritis. The antibiotics mentioned before are good coverage for mesenteritis. Pain control with IV Dilaudid p.r.n., IV morphine p.r.n., and also IV fentanyl p.r.n. Further plan will depend on clinical course. 3. Regarding her history of hypercoagulable state: Continue Lovenox subcu. 4. Regarding her history of PE and DVT and morbid obesity: Continue home oxygen and titrate for saturation more than 94%. No active issue. 5. Regarding her history of chronic pain syndrome: Continue all the pain medications as mentioned before and also continue home narcotics as well with holding parameters. 6. Regarding her diabetes: Will be using subcu regular insulin aggressive PATIENT'S NAME: PHILL NGUYEN [facility] AGE: 41 Y [address] ROOM: [place] [address] LOCATION: GPCU ADMIT DATE: 12/30/2016 History & Physical DISCHARGE DATE: FAMILY PHYSICIAN: Rudy Leo MD ATTENDING PHYSICIAN: CORTNEY ATKINSON dose for now q.4 hours and levemir 10 Units qhs and titrate as needed. A1c was already checked recently, there is no need to repeat, it was 9.9 back on December 30, 2016. 7. Regarding her history of hypothyroidism: We will check TSH and titrate the home dose of levothyroxine if she is on levothyroxine at home. 8. Regarding her acute kidney injury: Continue IV fluids and I anticipate this to be resolved with IV hydration. Further plan will depend on clinical course. 9. DVT prophylaxis: She is on subcu Lovenox already for her hypercoagulable state. Time spent in care on the day of admission 60 minutes where 20 minutes was spent on chart review, and the remainder of the time was spent on interview, physical examination, and counseling. The counseling includes going over plan of care with patient and addressing all questions and concerns the patient had to her satisfaction. This time also includes going over the plan of care in detail with nurse. Further plan will depend on clinical course. CORTNEY ATKINSON MD CC/modl /[id number] D: 534 T: 613 HISTORY & PHYSICAL
[2016-12-30 21:36] LABS: BASOPHIL # 0.1 K/uL (0.0-0.2); BASOPHIL % 0.6 %; EOSINOPHIL # 0.1 K/uL (0.0-0.5); EOSINOPHIL % 0.6 %; HEMATOCRIT 35.1 % (33.0-46.0); IMMATURE GRANULOCYTE # 0.1 K/uL (0.0-0.3); IMMATURE GRANULOCYTE % 0.4 %; LYMPHOCYTE # 2.6 K/uL (0.8-4.0); LYMPHOCYTE % 14.7 %; MCHC 34.2 gm/dL (32.0-36.5); MCV 93.6 fl (83.0-98.0); MONOCYTE # 0.9 K/uL (0.0-1.0); MPV 10.5 fl (9.4-12.4); NEUTROPHIL # (ANC) 13.8 K/uL (1.8-7.8); NEUTROPHIL % 78.7 %; NRBC % 0 /100WBC (0-0.00); PLATELET COUNT 289 K/uL (150-450); RBC 3.75 M/uL (3.50-5.50); RDW-CV 15.5 % (11.9-14.6); WBC 17.5 K/uL (4.0-11.0)
[2016-12-30 21:46] LABS: INR - (THERAPEUTIC) 1.01 (0.92-1.07); PROTIME 10.6 SECONDS (9.8-11.4); PTT 28 SECONDS (25-32)
[2016-12-30 21:47] LABS: BILIRUBIN URINE NEGATIVE (NEGATIVE); BLOOD URINE 10 /UL (NEGATIVE); COLOR URINE YELLOW (YELLOW); GLUCOSE URINE 250 mg/dL (NEGATIVE); KETONE URINE 5 mg/dL (NEGATIVE); LEUKOCYTES URINE NEGATIVE /UL (NEGATIVE); NITRITE URINE NEGATIVE (NEGATIVE); PROTEIN URINE 30 mg/dL (NEGATIVE); TURBIDITY URINE 2+ (CLEAR); UROBILINOGEN URINE 1 mg/dL (NORMAL)
[2016-12-30 21:54] LABS: CALCIUM 8.6 mg/dL (8.5-10.5); CREATININE 1.2 mg/dL (0.5-1.1); TOTAL BILIRUBIN 0.5 mg/dL (0.0-1.5)
[2016-12-30 21:55] LABS: ANION GAP 13.9 (10.0-19.0); POTASSIUM 3.9 mMol/L (3.7-5.1)
[2016-12-30 21:57] LABS: AMORPHOUS URINE 1+ (NEGATIVE); BACTERIA URINE MANY (NEGATIVE); MUCUS URINE 1+ (NEGATIVE); RBC URINE 0-2 #/HPF (NEGATIVE); YEAST URINE FEW (NEGATIVE)
--- NOTE | 2016-12-31 02:10 | NUR ---
PATIENT IS FROM HOME. SHE HAS BEEN RUNNING A FEVER, N/V, ABD PAIN, AND JUST NOT FEELING WELL LAST FEW DAYS. CALLED AND WAS TOLD TO GO TO THE ER. PATIENT HAS A PORT LT UPPER CHEST USED FOR TPN/LIPIDS SHE DOES DAILY. PORT CH[facility]. PATIENT ADMITED FOR SEPSIS. PATIENT A/OX3. VVS ON 3L PER HOME SETTING. LUNGS CLEAR. BOWEL SOUNDS HYPOACTIVE, ABD PAIN, LAST BM 12/30. ON A CLEAR LIQUID DIET AT HOME. NPO FOR NOW. BILATERAL BREAST HAVE SOME EXCORIATION. UP STANDBY ASSIST. ACCU CHECK Q4HRS. NS @ 100MLS AND PRN ANTIBOTICS PER SEPSIS PROTOCOL. FAMILY AT BEDSIDE.
--- NOTE | 2016-12-31 11:06 | NUR ---
Diabetes Consult: Patient well known to me from previous admissions. The patient is on TPN at home. She reports not feeling well the last two days and stopped her TPN. The patient's current A1C is 9.9%. The patient reports she is supposed to take her rapid acting insulin every 4 hours when her TPN is running. She reports that she has not taken her insulin in quite some time. Discussed the need to continue insulin in conjuction with TPN and her increased risk of complications with elevated glucose levels. The patient reports that she no longer has a glucometer. She was provided with a Contour Next glucometer and testing supplies. Survival skills checklist completed. The patient may benefit from a basal insulin at discharge. She did receive Levemir 10 units last evening. Will continue to follow and reinforce the need for medication compliance.
--- NOTE | 2016-12-31 11:44 | NUR ---
A-CONSULT RECEIVED FOR TPN FEVER, N/V, ABD PAIN. ON TPN/LIPIDSD AT HOME D/T SHORT BOWEL SYNDROME AND CHRONIC ISCHEMIC COLITIS. PT STOPPED TPN/LIPIDS ABOUT 2 DAYS AGO D/T NOT FEELING WELL. HAS NOT BEEN TAKING HER INSULIN WITH HER TPN/LIPIDS. HYPOACTIVE BS; LAST BM 12/30. CLEAR LIQUID DIET AT HOME HT: 64 IN. WT: 130.3 KG. BMI: 49.3. IBW: 55 KG LABS: NA 135, K+ 3.9, GLU 328, BUN 20, HOT STRIP MILL SUPERVISOR 1.2, ALB 3.0, P 2.3, MG 1.9 MEDS: LEVAQUIN, ZYVOX, PROZAC, WELLBUTRIN, PROTONIX, MERREM, NOVOLIN-R (AGG SS), LEVEMIR, PERCOCET, ZOFRAN, SUBLIMAZE, MORPHINE, DILAUDID, PHERNERGAN. DIET RX: NPO EST NUTR NEEDS: 6340-8595 KCALS (13-17 KCALS/KG) 83-138 GM PROTEIN (1.5-2.5 GM/KG IBW) 1 ML FLUID/KCAL D-AT NUTRITION RISK W/INADEQUATE ORAL INTAKE R/T ALTERED GI FXN AEB RELIANCE ON TPN/LIPIDS, DX. I-RECOMMEND 85 ML/HR TPN W/250 ML 20% LIPIDS MWF; THIS WILL PROVIDE AN AVG OF 2295 KCALS AND 87 GM PROTEIN. M/E-GOAL: TPN/LIPIDS TO MEET NUTR. NEEDS 1)F/U TPN, GI, AND POC IN 2-4 DAYS 2)ASSIST NEEDED
--- NOTE | 2016-12-31 11:45 | NUR ---
Introduced self and CM role to Kristen "Jimena". I am familiar with Jimena from previous admissions to [facility]. Jimena lives in [place] with her family. She is on TPN/Lipids at home and states that she still gets them from [facility]. Let her know that I would update them that she was here and when she was leaving. PCP is . Jimena manages her own medications at baseline and plans to continue to do so when she goes back home. Jimena is on 2.5L O2 at baseline. She denies any need for DME or HHC upon dismissal. Left my name on her whiteboard incase she would have any questions during her stay. Phoned over to [facility], , talked with Mayela and updated her to let her know that Jimena was admitted with us and we would notify them and fax them orders when she dismissed. Mayela was fine with this. Left sticky note on the chart with number to [facility] for nursing to call when she leaves and also left a fax cover letter on the chart as well to fax dismissal orders over to them when she goes. CM to continue to follow and assist. Plan home.
[2016-12-31 13:41] LABS: HEMATOCRIT 31.9 % (33.0-46.0); HEMOGLOBIN 10.8 g/dL (10.0-15.0); MCH 31.9 pg (27.0-34.0); MCHC 33.9 gm/dL (32.0-36.5); MCV 94.1 fl (83.0-98.0); MPV 10.7 fl (9.4-12.4); RBC 3.39 M/uL (3.50-5.50); RDW-CV 15.8 % (11.9-14.6); WBC 13.2 K/uL (4.0-11.0)
[2016-12-31 13:58] LABS: ALBUMIN 2.4 gm/dL (3.5-5.0); ALK PHOS 153 IU/L (33-138); ALT 70 IU/L (12-78); ANION GAP 11.4 (10.0-19.0); AST 80 IU/L (10-40); BLOOD UREA NITROGEN 11 mg/dL (6-24); CALCIUM 7.6 mg/dL (8.5-10.5); CHLORIDE 105 mMol/L (96-110); CO2 24 mMol/L (22-32); CREATININE 0.7 mg/dL (0.5-1.1); MAGNESIUM 1.8 mg/dL (1.8-2.6); PHOSPHORUS 2.5 mg/dL (2.5-4.9); POTASSIUM 3.4 mMol/L (3.7-5.1); SODIUM 137 mMol/L (135-145); TOTAL BILIRUBIN 0.6 mg/dL (0.0-1.5); TOTAL PROTEIN 6.7 g/dL (6.0-8.4)
--- NOTE | 2016-12-31 19:10 | NUR ---
Significant Event: A/Ox3. VSS on 2L at rest and 3L with activity per home dose. SR with first degree AVB. L) chest port infusing NS at 100ml/hr and 40mEq of KCL. 2grams of mag also given. Patient is NPO with ice chips. This is what she does at home. TPN/lipids still held per MD. Patient is on TPN/Lipids at home. Phenagran and zofran given x1 for nausea. Dilaudid last given at 1700 for abdominal pain with releif. Up with 1A to bathroom. Accuchecks every 4 hours.
[2017-01-01 05:58] LABS: ALBUMIN 2.6 gm/dL (3.5-5.0); ANION GAP 10.6 (10.0-19.0); BLOOD UREA NITROGEN 7 mg/dL (6-24); CALCIUM 7.9 mg/dL (8.5-10.5); CHLORIDE 108 mMol/L (96-110); CO2 23 mMol/L (22-32); CREATININE 0.7 mg/dL (0.5-1.1); MAGNESIUM 2.4 mg/dL (1.8-2.6); PHOSPHORUS 2.9 mg/dL (2.5-4.9); POTASSIUM 3.6 mMol/L (3.7-5.1); SODIUM 138 mMol/L (135-145)
--- NOTE | 2017-01-01 06:25 | NUR ---
Patient A/Ox3. VSS on 3L per home setting. Up one assist. Port to LT chest, no issues. Lungs clear. Bowel sounds hypoactive. NPO ex ice chips. Still complains of nausea and abd pain. Dilaudid and zofran given several times. Blood cultures (+).
[2017-01-01 06:53] LABS: LYMPHOCYTE % 33 %; SEGMENTED NEUTROPHIL % 36 %
[2017-01-01 06:54] LABS: BANDED NEUTROPHILS % 25 %
[2017-01-01 10:11] LABS: ABSOLUTE NEUTROPHIL CT (ANC) 6.2 K/uL (1.8-7.8); BANDED NEUTROPHIL # 2.5 K/uL (0.0-0.1); HEMATOCRIT 31.6 % (33.0-46.0); HEMOGLOBIN 10.6 g/dL (10.0-15.0); LYMPHOCYTE # 3.3 K/uL (0.8-4.0); MCH 31.5 pg (27.0-34.0); MCHC 33.5 gm/dL (32.0-36.5); MONOCYTE # 0.4 K/uL (0.0-1.0); PLATELET COUNT 290 K/uL (150-450); RBC 3.36 M/uL (3.50-5.50); SEGMENTED NEUTROPHIL # 3.6 K/uL (1.8-7.8); WBC 10.1 K/uL (4.0-11.0)
--- NOTE | 2017-01-01 19:24 | NUR ---
Significant Event: A/Ox3. VSS on 2-3L per home dose. L) chest port infusing NS at 50ml/hr. TPN and lipids to be re-initiated tomorrow. Mepropenem continued. Zyvox and levaquin discontinued. Up with SBA. Dilaudid last given at 1730 for abdominal pain. Zofran given x1 for nausea last dose this AM with releif. Benadryl for iching from antibiotics last given at 1730. Accuchecks AC/HS.
--- NOTE | 2017-01-02 01:13 | NUR ---
Significant Event:A/Ox3. VSS on 2-3L oxygen per home dose. Accuchecks q4h 1900 and 2300 treated. Patient continues to rate pain at a 9/10 even after dilaudid doses pain only decreases to an 8. Patient does not act as though she is in pain while she is on the phone with family/playing on her phone and watching tv. Zofran and phenergan given to help with nausea. Port to L)chest flushes hard but has good blood return. Follow up:Continue with ATB and start TPN in the morning.
[2017-01-02 04:29] LABS: ALBUMIN 2.6 gm/dL (3.5-5.0); ALK PHOS 269 IU/L (33-138); ALT 89 IU/L (12-78); ANION GAP 10.5 (10.0-19.0); AST 62 IU/L (10-40); BLOOD UREA NITROGEN 6 mg/dL (6-24); CALCIUM 8.1 mg/dL (8.5-10.5); CHLORIDE 108 mMol/L (96-110); CO2 25 mMol/L (22-32); CREATININE 0.8 mg/dL (0.5-1.1); POTASSIUM 3.5 mMol/L (3.7-5.1); SODIUM 140 mMol/L (135-145)
[2017-01-02 04:31] LABS: TOTAL BILIRUBIN 0.4 mg/dL (0.0-1.5)
[2017-01-02 04:36] LABS: BASOPHIL # 0.1 K/uL (0.0-0.2); BASOPHIL % 0.7 %; EOSINOPHIL # 0.3 K/uL (0.0-0.5); EOSINOPHIL % 2.7 %; HEMATOCRIT 32.1 % (33.0-46.0); HEMOGLOBIN 10.7 g/dL (10.0-15.0); IMMATURE GRANULOCYTE % 0.3 %; LYMPHOCYTE # 2.8 K/uL (0.8-4.0); LYMPHOCYTE % 29.6 %; MCH 31.7 pg (27.0-34.0); MCHC 33.3 gm/dL (32.0-36.5); MONOCYTE # 0.9 K/uL (0.0-1.0); MPV 11.1 fl (9.4-12.4); NEUTROPHIL # (ANC) 5.3 K/uL (1.8-7.8); NEUTROPHIL % 56.7 %; NRBC % 0 /100WBC (0-0.00); PLATELET COUNT 317 K/uL (150-450); RBC 3.38 M/uL (3.50-5.50); RDW-CV 16.2 % (11.9-14.6); WBC 9.4 K/uL (4.0-11.0)
--- NOTE | 2017-01-02 05:58 | NUR ---
Significant Event: PATIENT AAO x3. VSS ON 2-3L O2 PER HOME SETTINGS. UP WITH STAND BY ASSIST. PORT ON L) CHEST OCCLUDED AT 0145 AND WAS RE-ACCESSED. LUNGS CLEAR. BOWEL SOUNDS HYPOACTIVE. NPO EXCEPT ICE CHIPS, LIQUIDS. STILL COMPAINS OF GENERALIZED PAIN, NAUSEA AND ITCHING. DILAUDID/ZOFRAN/BENADRYL GIVEN SEVERAL TIMES. BLOOD CULTURES POSITIVE FOR GRAM (-) RODS. LAST BM 12/30/16. Follow up: WILL START TPN TODAY AND CONTINUE IV ABX.
--- NOTE | 2017-01-02 10:39 | NUR ---
A-NUTRITION F/U TPN/LIPIDS HELD UNTIL TODAY. PT HAS C/O GENERALIZED PAIN AND NAUSEA. HYPOACTIVE BS; LAST BM 12/30 LABS: NA 140, K+ 3.5, GLU 145, BUN 6, CORPORATE SAFETY MANAGER 0.8, ALB 2.6 MEDS: DILAUDID DIET RX: NPO EXCEPT ICE CHIPS. TPN/LIPIDS TO START TODAY D-AT NUTRITION RISK W/INADEQUATE ORAL INTAKE R/T ALTERED GI FXN AEB RELIANCE ON TPN/LIPIDS I-RECOMMENDED 85 ML/HR TPN WITH 250 ML 20% LIPIDS MWF; THIS WILL PROVIDE AN AVG OF 2295 KCALS AND 87 GM PROTEIN M/E-GOAL: TPN/LIPIDS TO MEET NUTR. NEEDS 1)F/U TPN/LIPIDS AND POC IN 3-5 DAYS 2)ASSIST NEEDED
--- NOTE | 2017-01-02 20:20 | NUR ---
Significant Event: Patient is alert/oriented x3. Vital signs stable. Continues on 2-3L O2. Dilaudid q.2hr PRN generalized pain, with relief. Dr. Ha rounded and ordered MRI of thoracic and lumbar spine with and without contrast, since patient also complains of back pain. Dr. Zazueta ordered MYRTLE in AM to r/o vegetation. Continues on IV meropenem and TPN. Follow up: NPO at midnight for MYRTLE tomorrow.
[2017-01-03 06:01] LABS: ANION GAP 7.9 (10.0-19.0); POTASSIUM 3.9 mMol/L (3.7-5.1)
--- NOTE | 2017-01-03 07:15 | NUR ---
Significant Event: Patient is alert and oriented. VSS. TPN @ 85 in L) Chest port. IV ABX. Patient felt uncomfortable with a opal doing skin assessment due to past experiences, so refused skin assessment. Edema present. Dilaudid given x5. Benadryl given x2. Zofran given x1. Phenergan given x1. Patient appears to be resting comfortably. MYRTLE this am. NPO after midnight. Family showed up to patient room at 0100. Patient has been calm and cooperative with care. Follow up:
--- NOTE | 2017-01-03 11:57 | NUR ---
MYRTLE PERFORMED IN PACU. START AT 0940 AND END AT 0959. PATIENT POSITIONED TO LEFT TILT DURING PROCEDURE. CAPNOGRAPHY IN PLACE. MONITORING PER ANESTHESIA. SEE ANESTHESIA RECORD.
--- NOTE | 2017-01-03 20:17 | NUR ---
Significant Event: Patient is alert/oriented x3. Went down for MYRTLE at 0930 and came back to the floor at 1050. No vegetation noted per Dr. Zazueta's progress notes. Patient has been on room air at times with O2 sats 95%, otherwise on 2-3L. Vital signs are stable. Rates pain 8-9/10 (generalized pain) and obtains relief with IV morphine and IV fentanyl. Dr. Ha discontinued IV Dilaudid. Patient refuses to attempt to control pain with PO pain medications, despite education that she will not be able to go home on IV pain medications. TPN via left chest port. Continues on IV meropenem. Follow up: Continue to monitor per plan of care.
[2017-01-04 04:58] LABS: ALBUMIN 2.4 gm/dL (3.5-5.0); ALK PHOS 248 IU/L (33-138); ALT 50 IU/L (12-78); ANION GAP 9.1 (10.0-19.0); AST 23 IU/L (10-40); BLOOD UREA NITROGEN 10 mg/dL (6-24); CALCIUM 8.6 mg/dL (8.5-10.5); CHLORIDE 105 mMol/L (96-110); CO2 27 mMol/L (22-32); CREATININE 0.6 mg/dL (0.5-1.1); POTASSIUM 4.1 mMol/L (3.7-5.1); SODIUM 137 mMol/L (135-145); TOTAL BILIRUBIN 0.4 mg/dL (0.0-1.5); TOTAL PROTEIN 6.9 g/dL (6.0-8.4)
[2017-01-04 05:01] LABS: BASOPHIL # 0.1 K/uL (0.0-0.2); BASOPHIL % 0.9 %; EOSINOPHIL # 0.5 K/uL (0.0-0.5); EOSINOPHIL % 6.5 %; HEMATOCRIT 31.4 % (33.0-46.0); HEMOGLOBIN 10.3 g/dL (10.0-15.0); IMMATURE GRANULOCYTE % 0.4 %; LYMPHOCYTE # 3.7 K/uL (0.8-4.0); LYMPHOCYTE % 46.1 %; MCH 30.7 pg (27.0-34.0); MCHC 32.8 gm/dL (32.0-36.5); MCV 93.7 fl (83.0-98.0); MONOCYTE % 12.6 %; NEUTROPHIL # (ANC) 2.7 K/uL (1.8-7.8); NEUTROPHIL % 33.5 %; NRBC % 0 /100WBC (0-0.00); PLATELET COUNT 313 K/uL (150-450); RBC 3.35 M/uL (3.50-5.50); RDW-CV 15.9 % (11.9-14.6)
[2017-01-04 05:06] LABS: INR - (THERAPEUTIC) 1.02 (0.92-1.07); PROTIME 10.7 SECONDS (9.8-11.4)
--- NOTE | 2017-01-04 07:59 | NUR ---
Shift Summary: Patient independent in ambulating to BR to void. C/O abd pain and taking Dilaudid IV about every 2hr. Last dose with am meds. Has port to left chest. Flushes with ease with good blood return. Caps and tubing changed this am. Is diabetic and on q 4hr accuchecks with aggresive SS. Has been over 200 all shift. Refuses po pain medication. States it makes her stomach hurt.
--- NOTE | 2017-01-04 17:37 | NUR ---
Significant Event: A/O X3. UP AD MARTINA. LEFT CHEST PORT, GOOD BLOOD RETURN, TPN AND LIPIDS INFUSING. INTERMITTENT IV ANTIBIOTICS. C/O PAIN TO STOMACH AND EXTREMITIES, DILAUDID IV 1 MG LAST @ 0845, PATIENT HAS REFUSED TO TAKE ANY MORE PAIN MEDS SINCE MD TALKED WITH HER THIS AM. ZOFRAN 4 MG IV PRN GIVEN X1 @ 0845. Follow up:
--- NOTE | 2017-01-05 12:53 | NUR ---
A-NUTRITION F/U C/O STOMACH PAIN AND IN EXTREMITIES. 01/02 WT: 292 LBS. 01/03 AND 01/04 WT 301 LBS. MEDS: NORCO, DILAUDID (CNHANGED TO ORAL), LEVEMIR LABS: NA 137, K+ 4.1, GLU 234, BUN 10, ACID LOADER 0.6, ALB 2.4 DIET RX: NPO; 85 ML/HR TPN W/250 ML 20% LIPIDS MWF-PROVIDING AVG OF 2295 KCALS AND 87 GM PROTEIN D-AT NUTRITION RISK W/INADEQUATE ORAL INTAKE R/T ALTERED GI FXN AEB RELIANCE ON TPN/LIPIDS, SHORT BOWEL SYNDROME, CHRONIC ISCHEMIC COLITIS I-CONTINUE W/CURRENT TPN/LIPIDS M/E-GOAL: TPN/LIPIDS TO MEET NUTR. NEEDS 1)F/U TPN/LIPIDS AND POC IN 3-5 DAYS 1)ASSIST NEEDED
--- NOTE | 2017-01-05 15:53 | NUR ---
Reviewed Digna' chart, saw that rounded on her and ordered for her port to be removed by and that once that port was removed, she would need IV Abxs x14 days Meropenium. I plan on updating Mayela at [facility] to this either tomorrow or , once I know when is planning on removing her port. CM to continue to follow and assist. Plan home with [facility] when ready to dismiss.
--- NOTE | 2017-01-05 17:39 | NUR ---
Significant Event:Arash blood cultures peripheral and from port. Dr. Marroquin to replace port tomorrow. NPO after midnight. Increase levemir becuase blood sugars are running high. Hold lovenox tonight and morning. Pt reports having loose stools. Follow up:Will replace port tomorrow
--- NOTE | 2017-01-06 03:56 | NUR ---
Patient is alert and oriented, on 2L O2, home dose. Independent in the room. Has L) chest port that has TPNs infusing with IV antibiotics. Will have this removed and new one placed with Dr. Ocampo today. Has been NPO since midnight, usually is NPO with sips and ice chips. Had some adbominal pain and diarrhea, morphine given x1 and [place] given earlier for a headache. Q4 hour accucheck on aggressive sliding scale, gave 12 units for 302 BS at 0300. Blood cultures were drawn yesterday from the port and peripherally. Consent is not signed for her procedure due to no risks and benefits done.
[2017-01-06 07:21] LABS: BASOPHIL # 0.1 K/uL (0.0-0.2); BASOPHIL % 0.6 %; EOSINOPHIL # 0.5 K/uL (0.0-0.5); EOSINOPHIL % 4.8 %; HEMATOCRIT 33.1 % (33.0-46.0); HEMOGLOBIN 11.2 g/dL (10.0-15.0); IMMATURE GRANULOCYTE # 0.1 K/uL (0.0-0.3); IMMATURE GRANULOCYTE % 0.7 %; LYMPHOCYTE # 3.1 K/uL (0.8-4.0); LYMPHOCYTE % 31.2 %; MCH 31.5 pg (27.0-34.0); MCHC 33.8 gm/dL (32.0-36.5); MONOCYTE % 9.6 %; MPV 10.3 fl (9.4-12.4); NEUTROPHIL # (ANC) 5.3 K/uL (1.8-7.8); NEUTROPHIL % 53.1 %; NRBC % 0 /100WBC (0-0.00); RBC 3.56 M/uL (3.50-5.50); RDW-CV 15.6 % (11.9-14.6)
[2017-01-06 07:25] LABS: PLATELET COUNT 454 K/uL (150-450)
--- NOTE | 2017-01-06 09:28 | NUR ---
D:Patient to [facility] per wheelchair at 0700. SN Stacey with patient and transport.
--- NOTE | 2017-01-06 12:33 | NUR ---
Talked with about dismissal plans. She tells me that Jimena got her port removed today and she is writing for a PICC line to be placed later today or first thing tomorrow. also tells me that she will have to go home with IV Abxs, Meropenium 2 gm Q12 for 14 days. I let her know that I will start working to get this all lined up so we could get her dismissed as soon as tomorrow if she was ready to go at that time. in agreement with this plan. I phoned over to [facility], talked with Mayela, updated her to the above. Faxed her over the needed information to get it prior-authed through [employer] insurance so she would be able to go home with IV Abxs. Mayela states that she will call me when she has got the auth with her insurance. Jimena has a hx of [facility] HIP so I will talk with her about using them again and try to get her set up with them as well if she is in agreement with the plan. CM to continue to follow and assist.
--- NOTE | 2017-01-06 13:29 | NUR ---
D:Patient returned to floor at 1025 per cart. Has dressing to left chest that is dry and intact. Has PIV to left inner wrist. Report recieved from Malinda ADAMS.
--- NOTE | 2017-01-06 16:03 | NUR ---
Diabetes center note: 1600 Consult received regarding insulin teaching. Patient is out of room for procedure at the time CDE goes to do teaching, will attempt education in a.m. Patient does have a meter at home and has completed the Diabetes Assessment form with CDE last week, so will demonstrate insulin injection technique when patient is available on 01/08/17.
--- NOTE | 2017-01-06 17:21 | NUR ---
D:Patient at 1400 to [facility] per wheel chair for PICC line placement.
--- NOTE | 2017-01-06 18:57 | NUR ---
pt arrived back on floor from Pre-op by cart. PICC line attempts were unsuccessful.
--- NOTE | 2017-01-06 18:59 | NUR ---
PATIENT IS ALERT AND ORIENTED ON 2L O2 HOME DOSE. INDEPENDENT IN THE ROOM. LEFT CHEST PORT WAS REMOVED THIS MORNING BY DR. PRETTY TODAY. IS NPO WITH SIPS AND ICE CHIPS. MORPHINE GIVEN X2 AND NORCO. Q4 HOUR ACCUCHECK ON AGGRESSIVE SLIDING SCALE. LEVENOX AND TPN ARE BEING HELD. PATIENT WILL GO TO INTERVENTIONAL RADIOLOGY FOR PICC LINE PLACEMENT.
--- NOTE | 2017-01-06 19:24 | NUR ---
D:Patient returned to floor 1800 from [facility]. Unable to place PICC line, they made 6 attempts. Orders for Interventional Radiology to see tomorrow.
--- NOTE | 2017-01-07 07:24 | NUR ---
Significant Event: PATIENT ORIENTED X3. AFEBRILE. VSS. PATIENT UP TO BATHROOM AD MARTINA. DRESSINGS TO L) CHEST AND L) UPPER FOREARM C/D/I. NORCO X1. Follow up: PLAN FOR PICC TODAY
--- NOTE | 2017-01-07 14:25 | NUR ---
Talked with Mayela at [facility], she states that she is working on the insurance pre-auth for the IV Abx, but there shouldn't be an issue with getting it covered. I then talked with Cecilia in the pharmacy dept at [facility], she says that as soon as Jimena gets her PICC line in, they will mix up her IV Abxs and get them on the road to come to her yet today so Jimena can do her first IV Abxs at home tomorrow morning. I visited with Jimena, she denies wanting any [facility] to follow along with her care stating that "I have done this before and I know how to properly do it. [facility] to get my PICC line dressing changes done and that works out just fine for me. I will follow up with them for my first dressing change and then we continue to schedule them a week at a time so I can come in and keep getting it done." Let her know that this is fine. Called up to Mayela ADAMS on PCU, she tells me that Jimena just went down around 1430 to get her PICC line placed. Will follow up with her when she returns to the floor from getting her PICC line placed and then update [facility] and . CM to continue to follow and assist.
--- NOTE | 2017-01-07 14:30 | NUR ---
Diabetes center note: 1100 Met with patient to explain need for insulin teaching, patient reports she knows how to do shots because her has diabetes. CDE will provide education with meter teaching this afternoon. 1330 Met with patient, demonstrated vial and syringe method for self administration of insulin, explain action of Levemir and Novolog insulin and hospitalist will inform patient at time of dismissal how many units that she is suppose to take. One Touch meter provided and a note is left for script to be written for Delica lancets and One touch Verio strips for 4 times per day testing. Diabetes Survival skills checklist had previously been completed and patient denies further questions at this time. Patient is waiting for PICC line to be placed today and nurses report patient will probably be here at least overnight tonight, and ? dismissal 01/08/17.
[2017-01-07] MEDS ORDERED: MERREM1 G1 IV (21:12)
[2017-01-07] MEDS ORDERED: NYATA15 GM TOP (21:15)
[2017-01-07] MEDS ORDERED: TYLENOL325 MG PO (21:16)
[2017-01-07] MEDS ORDERED: LEVEMIR FL100 UNIT/1 SUB-Q (21:29)
--- NOTE | 2017-01-07 22:26 | NUR ---
EDUCATION WAS GIVEN TO THE PATIENT ABOUT HOME MEDS AND FOLLOW UP APPOINTMENTS. SHE STATED SHE UNDSTOOD ALL THE INTRUCTIONS GIVEN TO HER. SHE DENIED HER HS MEDS STATING SHE HAD THEM AT HOME. FINAL VITALS WERE: BP 120/59, HR 77, TEMP 98.6, RESPS 20, 02 98% ON 2L. IV D/C'D. PICC LINE REMAINS. SHE WAS INTRUCTED TO CALL THE MD OR CANCER CENTER IF ANY COMPLICATIONS ARRISE WITH PICC LINE. LEFT THE HOSPITAL VIA WHEELCHAIR ACCOMPAINED BY THE AID AND FAMILY MEMBERS WITH HER HOME OXYGEN AT 2150.
== END 2017-01-07 21:30 | disposition disaster alternative care site (69) | DRG 871 ==
LOC: GMED 20:22 → GPCU 23:06
PROVIDERS: Family Medicine; Internal Medicine; ADMIT Internal Medicine
PROC: 3E0336Z Introduction of Nutritional Substance into Peripheral Vein, Percutaneous Approach (ICD-10-PCS; principal; 2017-01-01)
PROC: B246ZZ4 Ultrasonography of Right and Left Heart, Transesophageal (ICD-10-PCS; 2017-01-03)
PROC: 0JPTXXZ Removal of Tunneled Vascular Access Device from Trunk Subcutaneous Tissue and Fascia, External Approach (ICD-10-PCS; 2017-01-06)
DX: A41.59 Other Gram-negative sepsis (principal); J96.21 Acute and chronic respiratory failure with hypoxia; N17.9 Acute kidney failure, unspecified; K91.2 Postsurgical malabsorption, not elsewhere classified; K65.4 Sclerosing mesenteritis; D68.59 Other primary thrombophilia; Z68.42 Body mass index [BMI] 45.0-49.9, adult; E11.9 Type 2 diabetes mellitus without complications; E66.01 Morbid (severe) obesity due to excess calories; R65.20 Severe sepsis without septic shock; I10 Essential (primary) hypertension; Z79.01 Long term (current) use of anticoagulants; Z86.711 Personal history of pulmonary embolism; G89.4 Chronic pain syndrome; E03.9 Hypothyroidism, unspecified
CPT/HCPCS: C1751; C1769; C1894; C9113; J1170; J1200; J1642; J1650; J1956; J2001; J2020; J2185; J2270; J2405; J2550; J2997; J3010; J3370; J3475; J3480; J7030; J7040; J7050